=== PATIENT | male | born 1955 | race Caucasian/White ===

== ENCOUNTER 2019-11-09 06:00 | Outpatient (RCR) | payer SELFPAY | END 2019-11-10 00:01 | LOC: WPT 06:00 | PROVIDERS: Family Provider Internal Medicine; Visit Provider Internal Medicine | DX: M17.12 Unilateral primary osteoarthritis, left knee (principal) | CPT/HCPCS: 97161 ==

== ENCOUNTER 2019-11-11 06:00 | Outpatient (RCR) | payer OTHER, SELFPAY | END 2019-12-11 23:59 | disposition home or self-care (01) | LOC: WPT 06:00 | PROVIDERS: Family Provider Internal Medicine; PCP Internal Medicine; Referring Provider Internal Medicine; Visit Provider Internal Medicine | DX: Z47.1 Aftercare following joint replacement surgery (principal); Z96.652 Presence of left artificial knee joint; M19.90 Unspecified osteoarthritis, unspecified site | CPT/HCPCS: 97110; 97112; 97140 ==

== ENCOUNTER → 2019-11-16 13:30 | Outpatient (BNVA) | payer OTHER, SELFPAY | PROVIDERS: Family Provider Internal Medicine; PCP Internal Medicine; Visit Provider Orthopaedic Surgery | DX: Z48.89 Encounter for other specified surgical aftercare (principal) | CPT/HCPCS: 73560; 73565 ==

== ENCOUNTER 2020-02-08 06:00 | Outpatient (RCR) | payer OTHER, SELFPAY | END 2020-02-09 23:59 | disposition home or self-care (01) | LOC: WPT 06:00 | PROVIDERS: Family Provider Internal Medicine; PCP Internal Medicine; Referring Provider Orthopaedic Surgery; Visit Provider Orthopaedic Surgery | DX: M75.01 Adhesive capsulitis of right shoulder (principal) | CPT/HCPCS: 97110; 97112; 97161 ==

== ENCOUNTER 2020-02-10 06:00 | Outpatient (RCR) | payer OTHER, SELFPAY | END 2020-03-10 23:59 | disposition home or self-care (01) | LOC: WPT 06:00 | PROVIDERS: Family Provider Internal Medicine; PCP Internal Medicine; Referring Provider Orthopaedic Surgery; Visit Provider Orthopaedic Surgery | DX: M75.01 Adhesive capsulitis of right shoulder (principal) | CPT/HCPCS: 97110; 97112 ==

== ENCOUNTER 2020-06-22 14:29 | Outpatient (CLI) | payer OTHER, SELFPAY ==
--- NOTE | 2020-06-22 14:35 | XR_ITS ---
WS: [id number] Lateral views of cervical spine in the flexion, extension and neutral positions. 06/22/2020 Clinical Data: CERIVALGIA-PL COMMENT ON PRES OR ABS OF SPINAL INSTABILITY Comparison: None. Findings: There is osteoporosis of the cervical vertebral bodies. There is disc space narrowing at C5-C6 and C6 -C7. No prevertebral soft tissue swelling is seen. Compression fractures are noted. On flexion there is slight subluxation of C4 on C5 of 0.2 cm. No limitation of motion is seen. XR/XR cervical spine fl/ex [id number] Impression: 1. Minimal subluxation on flexion of 0.2 cm C4 on C5. 2. Degenerative disc disease at C5-C6 and C6-C7. 3. Osteoporosis.
--- NOTE | 2020-06-22 14:35 | MR_ITS ---
WS: [id number] MRI CERVICAL SPINE NONCONTRAST TECHNIQUE: Sagittal T1, T2 and STIR imaging. Axial T2, gradient, and fiesta imaging. CLINICAL INFORMATION: CERVICALGIA COMPARISON: None. FINDINGS: Straightening of the normal cervical lordosis. Cord signal is normal. No high-grade central canal gatito rowing. Disc space narrowing worse at C6-7. C2-C3: Osteophytic ridging. Mild to moderate left foraminal narrowing. Spinal canal is patent. Modera te facet arthropathy. C3-C4: Mild disc osteophyte ridging. Moderate left and mild right bony foraminal narrowing. Spinal ca nal is patent. Moderate facet arthropathy. C4-C5: Slight anterolisthesis C4 on C5. Disc osteophyte complex with endplate ridging. Spinal canal i s patent. Moderate bilateral bony foraminal narrowing right greater than left. Advanced right facet a rthropathy. C5-C6: Left eccentric disc osteophyte complex with moderate to severe left bony foraminal narrowing. Moderate right bony foraminal narrowing. Mild central canal stenosis. C6-C7: Disc osteophyte complex with endplate ridging. Moderate left greater than right bony foramina l narrowing. Spinal canal is patent. C7-T1: Disc osteophytic ridging. Mild to moderate bilateral bony foraminal narrowing. Spinal canal is patent. Tiny disc protrusions in the upper thoracic spine at T1-T2 and T2-3 Visualized brain stem structures: Normal. Prevertebral soft tissues: Normal. MR/MR cervical spin wo con* [id number] IMPRESSION: 1. Straightening of the normal cervical lordosis. No high-grade central canal narrowing. Cord signal is normal. 2. Mild central canal stenosis C4-C5 due to disc osteophyte complex with endpl ate ridging. 3. Left eccentric disc osteophyte complex C5-C6 with moderate to severe left b brenda foraminal narrowing. 4. Multilevel moderate bony foraminal narrowing worse at left C3-4, right C4-5 , left C5-C6 and left C6-7. 5. Asymmetric advanced facet arthropathy left C3-C4, right C4-C5,
== END 2020-06-22 14:30 | disposition home or self-care (01) ==
LOC: RADWPI 14:32
PROVIDERS: Family Provider Internal Medicine; PCP Internal Medicine; Visit Provider Nurse Practitioner
DX: M50.323 Other cervical disc degeneration at C6-C7 level (principal); M81.0 Age-related osteoporosis without current pathological fracture; M48.02 Spinal stenosis, cervical region; M25.78 Osteophyte, vertebrae; M47.812 Spondylosis without myelopathy or radiculopathy, cervical region
CPT/HCPCS: 72040; 72141

== ENCOUNTER 2020-10-18 09:16 | Outpatient (CLI) | payer OTHER, SELFPAY ==
--- NOTE | 2020-10-18 09:23 | XR_ITS ---
WS: [id number] SCREENING DEXA SCAN [employer] CLINICAL INFORMATION: OSTEOPOROSIS COMPARISON: None. FINDINGS: The L1-L4 bone mineral density measures 1.311 g/cm2. This corresponds to a T score score of 0.8 and Z score of 0.7. Left femoral neck bone mineral density measures 0.748 g/cm2. This corresponds to a T score of -2.4 an d Z score of -2.2. Right femoral neck bone mineral density measures 0.819 g/cm2. This corresponds to a T score -2.0of an d Z score of -1.7. Mean femoral neck bone mineral density measures 0.784 g/cm2. This corresponds to a T score of -2.2 an d Z score of -2.0. XR/XR DEXA axial skeleton* [id number] IMPRESSION: Osteopenia in the femoral necks at the upper end of the range T score in the lumbar spine spuriously elevated due to endplate sclerosis Patient's FRAX calculated 10 year probability for major osteoporotic fracture i s 14.8 % and osteoporotic hip fracture is 3.9%.
== END 2020-10-18 09:17 | disposition home or self-care (01) ==
LOC: RADWPI 09:21
PROVIDERS: PCP Family Medicine; Visit Provider Family Medicine
DX: M81.0 Age-related osteoporosis without current pathological fracture (principal); M85.89 Other specified disorders of bone density and structure, multiple sites
CPT/HCPCS: 77080; 99204

== ENCOUNTER → 2021-04-18 09:44 | Outpatient (BNVA) | payer OTHER, SELFPAY | PROVIDERS: PCP Family Medicine; Visit Provider Specialist | DX: G25.0 Essential tremor (principal); F10.20 Alcohol dependence, uncomplicated; J44.9 Chronic obstructive pulmonary disease, unspecified; Z98.1 Arthrodesis status | CPT/HCPCS: 99213 ==

== ENCOUNTER 2022-04-10 14:22 | Emergency (ER) | payer OTHER, SELFPAY ==
[2022-04-10 14:37] VITALS: BP 119/73; PULSE 71; RESP 18; TEMP 36.8; O2SAT 94; BMI 29.2
--- NOTE | 2022-04-10 15:08 | XRR_ITS ---
PROCEDURE INFORMATION: Exam: XR Lumbosacral Spine Exam date and time: 04/10/2022 3:25 PM Age: 67 years old Clinical indication: Low back pain; Patient HX: No specified injury; Additional info: Pain/injury TECHNIQUE: Imaging protocol: XR of the lumbosacral spine. Views: 2 or 3 views. COMPARISON: No relevant prior studies available. FINDINGS: Bones/joints: No acute fracture. There is a mild lumbar spine scoliosis convex to the left. There is disc space narrowing at L2/3. Soft tissues: Unremarkable. XR/XR lumbar spine 2-3V* [id number] IMPRESSION: There is no evidence for acute fracture or malalignment. If there is desire for further evaluation, a CT scan could be performed.
--- NOTE | 2022-04-10 15:08 | XRR_ITS ---
PROCEDURE INFORMATION: Exam: XR Thoracic Spine Exam date and time: 04/10/2022 3:25 PM Age: 67 years old Clinical indication: Pain in thoracic spine TECHNIQUE: Imaging protocol: XR of the thoracic spine. Views: 3 views. COMPARISON: CR XR cervical spine fl/ex [id number] 06/22/2020 4:00 PM FINDINGS: Bones/joints: There is osteopenia.There is no evidence for acute fracture or malalignment. Soft tissues: Unremarkable. XR/XR thoracic spine 3V* [id number] IMPRESSION: There is no evidence for acute fracture or malalignment. If there is desire for further evaluation, a MRI could be performed.
--- NOTE | 2022-04-10 15:09 | W.ED.BACK ---
HPI - Back Pain/Injury General: Chief Complaint: Back Pain/Injury Stated Complaint: Lower back pain and spine Time Seen by Provider: 04/10/22 14:50 Source: patient Mode of arrival: ambulatory Limitations: no limitations History of Present Illness: Patient is a nice 67-year-old male who presents to ED today with a complaint of back pain. Patient states he has a longstanding history of back pain stating that several decades ago he crushed multiple vertebrae in his back and neck. 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 Patient states yesterday he had a near fall but states he was able to catch himself. He reports since that time worsening discomfort to his back. MD elicited complaint: back pain Pertinent past history: prior back pain Onset (ago): day(s) (yesterday) Timing: constant Severity: severe Similar Symptoms Previously: Yes Location: lumbar spine and thoracic spine Radiation: none Exacerbating factors: movement, sitting upright, walking and lifting Relieving factors: other (lying flat) Associated symptoms: Reports no associated symptoms; Deny abdominal pain, chills, dysuria, fatigue, fever(s) or hematuria Work related injury: No Review of Systems Const: Denies: fever(s), chills, body aches, fatigue or malaise Card: Denies: chest pain Resp: Denies: dyspnea GI: Denies: abdominal pain : Denies: flank pain, dysuria or hematuria Musc: Reports: back pain; Denies: neck pain, extremity pain or joint pain Skin/Breast: Denies: rash Neuro: Denies: headache(s), numbness in extremities, weakness in extremities, sensory changes, lack of coordination or dizziness PFS ED PFSH: Social History Smoking and tobacco status: never smoked Alcohol intake: never History of recent travel: No Physical Exam Const: COMMON NORMALS: no acute distress, average body habitus, patient oriented x3, no limitations, healthy appearing, alert and well nourished Neck/C-Spine: OTHER: chronic limited ROM to neck; he states pain in neck is chronic and at baseline Back/Pelvis: THORACIC SPINE/UPPER BACK: Yes ROM limited, Yes pain with ROM, Yes thoracic spinal tenderness, Yes paraspinal muscle tenderness and No paraspinal muscle spasm LUMBAR SPINE/LOWER BACK: Yes ROM limited, Yes pain with ROM, Yes lumbar spinal tenderness, Yes paraspinal muscle tenderness and No paraspinal muscle spasm PELVIS: Yes buttocks normal SACROILIAC JOINTS: Yes SI joints normal OTHER: tenderness throughout lower thoracic/lumbar vertebra as well as paraspinal musculature; chronic limited ROM Extremity: COMMON NORMALS: normal to inspection GENERAL: Yes normal exam except as noted Neuro: DALIA COMA SCALE: document GCS findings [place] coma scale eye opening: Spontaneous [place] coma scale verbal response: Orientated [place] coma scale motor response: Obey commands [place] coma scale total score: 15 COMMON NORMALS: patient oriented x3, moves all extremities, no focal motor deficits and no sensory deficits noted SENSORIUM/ORIENTATION: Yes alert MOTOR EXAM: 5/5 motor strength present throughout Skin: COMMON NORMALS: no rashes or lesions noted GENERAL SKIN EXAM: no rashes or lesions noted Course Vital Signs: Vital signs: Vital Signs Temperature 98.2 F 04/10/22 14:37 Pulse Rate 71 04/10/22 14:37 Respiratory Rate 16 04/10/22 16:36 Blood Pressure 119/73 04/10/22 14:37 Pulse Oximetry 94 04/10/22 14:37 MDM - Back Pain/Injury Medical Decision Making XRs negative. He does not have any acute neurologic deficits. Patient already takes hydrocodone 10/325 mg tablets prescribed by pain management. Recommend he contact his sign painter helper to see if they need to adjust medications transiently. We will place him on an anti-inflammatory and steroids. He is currently taking 2mg zanaflex TID. This can be increased to 4 mg TID. Labs Radiology Impressions Lumbar Spine X-Ray 04/10/22 15:08 IMPRESSION: There is no evidence for acute fracture or malalignment. If there is desire for further evaluation, a CT scan could be performed. Thoracic Spine X-Ray 04/10/22 15:08 IMPRESSION: There is no evidence for acute fracture or malalignment. If there is desire for further evaluation, a MRI could be performed. Discharge Plan Discharge Patient Disposition: Home Clinical Impression: Acute exacerbation of chronic low back pain Condition: Stable Prescriptions: New methylprednisolone [Medrol ([place])] 4 mg tablets,dose pack See Rx Instructions .ROUTE .COMPLEX Qty: 21 0RF Rx Instructions: orally per package directions Changed Celebrex 200 mg capsule 200 mg PO BID PRN (Reason: pain) Qty: 20 0RF tizanidine 4 mg capsule 4 mg PO TID PRN (Reason: muscle spasticity) Qty: 20 0RF Discontinued prednisone 10 mg tablet 10 mg PO BID 0RF No Action albuterol sulfate 90 mcg/actuation aerosol powdr breath activated 1 inh INHALATION ONCE 0RF budesonide-formoterol 80-4.5 mcg/actuation HFA aerosol inhaler 2 puff INHALATION BID 0RF hydrocodone-acetaminophen [[place]] 10-325 mg tablet 1 tab PO Q6H PRN0RF lactulose 10 gram/15 mL solution 10 gm PO ONCE 0RF amlodipine 10 mg tablet 10 mg PO ONCE 0RF folic acid 1 mg tablet 1 mg PO ONCE 0RF primidone 50 mg tablet 50 mg PO BID 30 Days Qty: 60 5RF Rx Instructions: 1 tablet with supper for 7 days then 1 in the morning and 1 with supper For tremor. 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
[2022-04-10 15:24] VITALS: RESP 16
[2022-04-10] MEDS: orphenadrine 30 mg/mL Inj 2 mL 60 MG IM (15:24)
[2022-04-10] MEDS: ketorolac 60 mg/2 mL INJ 30 MG IM (15:24)
[2022-04-10] MEDS: morphine 4 mg/mL SDV 1 mL IVP (15:24)
[2022-04-10 16:36] VITALS: RESP 16
[2022-04-10] MEDS: HYDROmorphone 1 mg/mL INJ 1 mL 0.5 MG IVP (16:36)
== END 2022-04-10 17:06 | disposition home or self-care (01) ==
PROVIDERS: Emergency Provider Physician Assistant; PCP Family Medicine
DX: M54.50 Low back pain, unspecified (principal); G89.29 Other chronic pain
CPT/HCPCS: 72072; 72100; 96372; 96374; 96375; 99284; J1170; J1885; J2270; J2360

== ENCOUNTER → 2022-05-01 09:42 | Outpatient (BNVA) | payer OTHER, SELFPAY | PROVIDERS: PCP Family Medicine; Visit Provider Specialist | DX: G25.0 Essential tremor (principal) | CPT/HCPCS: 99214 ==

== ENCOUNTER 2022-09-03 16:11 | Emergency (ER) | payer OTHER, SELFPAY ==
[2022-09-03 16:43] VITALS: BMI 28.7
[2022-09-03 16:46] VITALS: BP 139/88; PULSE 62; RESP 18; TEMP 36.8; O2SAT 93
--- NOTE | 2022-09-03 16:47 | ECG_ITS ---
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 Measurements Intervals [place] Rate: 58 P: 34 NH: 183 QRS: 15 QRSD: 118 T: 62 QT: 406 QTc: 401 Interpretive Statements SINUS BRADYCARDIA MODERATE INTRAVENTRICULAR CONDUCTION DELAY Compared to ECG 09/30/2019 10:34:38 Sinus rhythm no longer present Electronically Signed On 09-03-2022 22:48:36 CDT by Dorota Bell M.D. [id number]
--- NOTE | 2022-09-03 17:00 | XRR_ITS ---
PROCEDURE INFORMATION: Exam: XR Chest Exam date and time: 09/03/2022 5:10 PM Age: 67 years old Clinical indication: Angina pectoris and chest pressure and chest wall pain; Additional info: Chest pain TECHNIQUE: Imaging protocol: Radiologic exam of the chest. Views: 1 view. COMPARISON: CR XR chest 2V* [id number] 09/30/2019 10:58 AM FINDINGS: Lungs: Curvilinear bibasilar scarring. No consolidation. Pleural spaces: Unremarkable. No pleural effusion. No pneumothorax. Heart/Mediastinum: Unremarkable. No cardiomegaly. Bones/joints: Unremarkable. XR/XR chest 1V portable [id number] IMPRESSION: No acute findings.
[2022-09-03 17:20] LABS: Basophils % 0.8 %; Eosinophils # 0.1 10^3/uL (0.0-0.8); Eosinophils % 1.2 %; Hematocrit 42.5 % (42.0-52.0); Hemoglobin 14.3 g/dL (11.7-16.6); Lymphocytes # 1.4 10^3/uL (0.8-4.8); Lymphocytes % 28.8 %; Mean Corpuscular HGB Conc 33.6 g/dL (30.0-36.0); Mean Corpuscular Hemoglobin 32.1 pg (28.0-34.0); Mean Corpuscular Volume 95.5 fl (80-94); Mean Platelet Volume 11.5 fL (7.4-10.4); Monocytes # 0.7 10^3/uL (0.2-0.9); Neutrophils # 2.74 10^3/uL (1.8-7.7); Neutrophils % 54.8 %; Nucleated Red Blood Cells % 0 %; Platelet Count 145 10^3/cmm (130-400); Red Blood Count 4.45 10^6/uL (4.1-5.3); Red Cell Distribution Width 13.6 % (12.1-15.1)
[2022-09-03 17:36] LABS: Troponin(5th) Baseline 12 ng/L (0-15)
[2022-09-03 17:37] LABS: Alanine Aminotransferase 16 U/L (0-41); Albumin Level 3.5 g/dL (3.5-5.2); Alkaline Phosphatase 98 U/L (40-130); Anion Gap 10.7 (5-19); Aspartate Amino Transferase 17 U/L (0-40); Blood Urea Nitrogen 10 mg/dL (8-23); Calcium 9.2 mg/dL (8.5-10.5); Carbon Dioxide 24 mmol/L (22-29); Chloride 101 mmol/L (98-107); Globulin 3.1 g/dL (1.3-4.6); Glucose 114 mg/dL (65-115); Lipase 34 U/L (13-60); Osmolality Calculated 274 mOsm/kg (285-295); Potassium 3.7 mmol/L (3.5-5.1); Sodium 132 mmol/L (136-145); Total Bilirubin 1.2 mg/dL (0.15-1.2); Total Protein 6.6 g/dL (6.6-8.7)
[2022-09-03 17:38] VITALS: BP 139/88; PULSE 58; RESP 18; TEMP 36.8; O2SAT 93
--- NOTE | 2022-09-03 17:39 | PC.NURSE ---
Patient is on continuous CM and SP02 monitor
[2022-09-03 17:42] VITALS: BP 126/85
[2022-09-03] MEDS: ketorolac 30 mg/mL INJ 15 MG IVP (18:10)
[2022-09-03] MEDS: sodium chloride 0.9% 1,000 ML 999 ML IV (18:10)
[2022-09-03] MEDS: meclizine 25 mg tablet PO (18:56)
--- NOTE | 2022-09-03 19:00 | ECG_ITS ---
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 Measurements Intervals [place] Rate: 57 P: 27 TN: 196 QRS: 21 QRSD: 118 T: 59 QT: 420 QTc: 412 Interpretive Statements SINUS BRADYCARDIA SEPTAL MYOCARDIAL INFARCTION , OF INDETERMINATE AGE [40+ ms Q WAVE IN V1/V2] Compared to ECG 09/03/2022 16:45:43 Myocardial infarct finding now present Intraventricular conduction delay no longer present Electronically Signed On 09-03-2022 23:06:56 CDT by Dorota Bell M.D. [id number]
[2022-09-03 19:15] LABS: Add Urine Microscopic? NO; Charge for UA Resulting for Rev
[2022-09-03 19:22] LABS: Bilirubin Urine Neg (Negative); Blood Urine Neg (Negative); Glucose Urine UA Norm (Normal); Ketones Urine 1+ (Negative); Leukocyte Esterase Urine Negative (Negative); Nitrate Urine Negative (Negative); Protein Urine Neg (Negative); Specific Gravity, Urine 1.015 (1.005-1.030); Urine Appearance Clear (CLEAR); Urine Color Yellow (Yellow); Urobilinogen Urine 8 mg/dL (Negative); pH Urine 7 (5-7)
[2022-09-03 19:43] VITALS: BP 160/95; PULSE 58; RESP 18; O2SAT 97
[2022-09-03 19:48] LABS: Troponin 5 2HR 12.66 ng/L (0-15)
[2022-09-03 19:51] LABS: Troponin 5 2HR Delta 0.66 ABS# (0-10)
[2022-09-03] MEDS: fentaNYL 50 mcg/mL INJ 2mL 25 MCG IVP (20:35)
--- NOTE | 2022-09-03 20:48 | W.ED.CHESTPA ---
HPI - Chest Pain General: Chief Complaint: Chest Pain Stated Complaint: Low BP and 02 Time Seen by Provider: 09/03/22 16:52 History of Present Illness: 67-year-old male presents with concerns for dizziness, feels like his blood pressure is low. Patient also reports some chest pain that comes and goes that is worse with inspiration worse with palpation. Patient reports that he gets dizzy when he stands up. Is been going on for about a day and a half. He also noticed that his blood pressure was lower than normal. He normally takes blood pressure medication and did not take it today because it was low. Patient denies any fever, cough. Is concerned about maybe some low oxygen but that was not present upon arrival. No abdominal pain. Associated symptoms: Deny abdominal pain, dyspnea, fever(s), nausea, palpitations or vomiting Review of Systems Const: Denies: fever(s) or chills Eyes: Denies: change in vision or blurry vision ENMT: Denies: throat pain or nasal congestion Card: Reports: chest pain; Denies: palpitations, irregular heart rhythm or lightheadedness Resp: Denies: dyspnea, non-productive cough or wheezing GI: Denies: abdominal pain, nausea, vomiting or diarrhea : Denies: flank pain or difficulty urinating Musc: Denies: neck pain or back pain Skin/Breast: Denies: rash or erythema Neuro: Reports: dizziness; Denies: headache(s) or numbness in extremities Psych: Reports: irritability; Denies: anxiety or depression PFSH ED PFSH: Social History Smoking and tobacco status: never smoked Alcohol intake: never History of recent travel: No Physical Exam Const: COMMON NORMALS: no acute distress, patient oriented x3, no limitations and alert HENMT: COMMON NORMALS: hearing grossly normal bilaterally and moist oral mucous membranes Eye: COMMON NORMALS: Equal, round and reactive pupils present and EOMs intact bilaterally PUPIL: Yes Equal, round and reactive pupils present Resp: COMMON NORMALS: normal respiratory effort, No retractions, No use of accessory muscles and clear to auscultation bilaterally AUSCULTATION: clear to auscultation bilaterally Cardio: COMMON NORMALS: regular rate and regular rhythm RATE: regular rate RHYTHM: regular rhythm GI: COMMON NORMALS: Soft to palpation and non-tender PALPATION: Yes Soft to palpation Extremity: COMMON NORMALS: normal to inspection and full ROM Neuro: COMMON NORMALS: patient oriented x3, CN's II-XII intact bilaterally, moves all extremities, no focal motor deficits and no sensory deficits noted SENSORIUM/ORIENTATION: Yes alert Psych: COMMON NORMALS: mental status grossly normal, cooperative and normal affect Course Vital Signs: Vital signs: Vital Signs Temperature 98.3 F 09/03/22 17:38 Pulse Rate 65 09/03/22 21:16 Respiratory Rate 18 09/03/22 21:16 Blood Pressure 162/92 09/03/22 21:16 Pulse Oximetry 96 09/03/22 21:16 Oxygen Delivery Me thod 09/03/22 17:38 MDM - Chest Pain Medical Decision Making Patient's symptoms completely resolved following IV fluids and meclizine. Patient is feeling significantly better. He was have a little pleuritic chest pain that improved with some Toradol and a mild amount of fentanyl. Patient's labs showed no significant findings. Patient with 2 negative EKGs 2 negative troponins. Patient stable and discharged home. Lab Data : 09/03/22 17:09 09/03/22 17:09 Radiology Impressions Chest X-Ray 09/03/22 17:00 IMPRESSION: No acute findings. Laboratory Results WBC 5.0 10^3/uL (4.0-10.0) 09/03/22 17:09 RBC 4.45 10^6/uL (4.1-5.3) 09/03/22 17:09 Hgb 14.3 g/dL (11.7-16.6) 09/03/22 17:09 Hct 42.5 % (42.0-52.0) 09/03/22 17:09 MCV 95.5 fl (80-94) H 09/03/22 17:09 MCH 32.1 pg (28.0-34.0) 09/03/22 17:09 MCHC 33.6 g/dL (30.0-36.0) 09/03/22 17:09 RDW 13.6 % (12.1-15.1) 09/03/22 17:09 Plt Count 145 10^3/cmm (130-400) 09/03/22 17:09 MPV 11.5 fL (7.4-10.4) H 09/03/22 17:09 Neut % (Auto) 54.8 % 09/03/22 17:09 Lymph % (Auto) 28.8 % 09/03/22 17:09 [place] % (Auto) 14.0 % 09/03/22 17:09 Eos % (Auto) 1.2 % 09/03/22 17:09 Baso % (Auto) 0.8 % 09/03/22 17:09 Neut # (Auto) 2.74 10^3/uL (1.8-7.7) 09/03/22 17:09 Lymph # (Auto) 1.4 10^3/uL (0.8-4.8) 09/03/22 17:09 [place] # (Auto) 0.7 10^3/uL (0.2-0.9) 09/03/22 17:09 Eos # (Auto) 0.1 10^3/uL (0.0-0.8) 09/03/22 17:09 Baso # (Auto) 0.0 10^3/uL (0.0-0.1) 09/03/22 17:09 Nucleated RBC % (auto) 0 % 09/03/22 17:09 Nucleated RBCs # 0.0 /100WBC 09/03/22 17:09 Sodium 132 mmol/L (136-145) L 09/03/22 17:09 Potassium 3.7 mmol/L (3.5-5.1) 09/03/22 17:09 Chloride 101 mmol/L (98-107) 09/03/22 17:09 Carbon Dioxide 24 mmol/L (22-29) 09/03/22 17:09 Anion Gap 10.7 (5-19) 09/03/22 17:09 BUN 10 mg/dL (8-23) 09/03/22 17:09 Creatinine 0.6 mg/dL (0.7-1.2) L 09/03/22 17:09 GFR Calculation 134.0 mL/min (90-130) H 09/03/22 17:09 Glucose 114 mg/dL (65-115) 09/03/22 17:09 Calculated Osmolality 274 mOsm/kg (285-295) L 09/03/22 17:09 Calcium 9.2 mg/dL (8.5-10.5) 09/03/22 17:09 Total Bilirubin 1.2 mg/dL (0.15-1.2) 09/03/22 17:09 AST 17 U/L (0-40) 09/03/22 17:09 ALT 16 U/L (0-41) 09/03/22 17:09 Alkaline Phosphatase 98 U/L (40-130) 09/03/22 17:09 Troponin T Baseline 12 ng/L (0-15) 09/03/22 17:09 Troponin T 120 Minute 12.66 ng/L (0-15) 09/03/22 19:19 Delta Troponin T 0.66 ABS# (0-10) 09/03/22 19:19 Total Protein 6.6 g/dL (6.6-8.7) 09/03/22 17:09 Albumin 3.5 g/dL (3.5-5.2) 09/03/22 17:09 Globulin 3.1 g/dL (1.3-4.6) 09/03/22 17:09 Lipase 34 U/L (13-60) 09/03/22 17:09 Urine Color Yellow (Yellow) 09/03/22 19:08 Urine Appearance Clear (CLEAR) 09/03/22 19:08 Urine pH 7 (5-7) 09/03/22 19:08 Ur Specific [place] 1.015 (1.005-1.030) 09/03/22 19:08 Urine Protein Neg (Negative) 09/03/22 19:08 Urine Glucose (UA) Norm (Normal) 09/03/22 19:08 Urine Ketones 1+ (Negative) H 09/03/22 19:08 Urine Blood Neg (Negative) 09/03/22 19:08 Urine Nitrate Negative (Negative) 09/03/22 19:08 Urine Bilirubin Neg (Negative) 09/03/22 19:08 Urine Urobilinogen 8 mg/dL (Negative) H 09/03/22 19:08 Ur Leukocyte Esterase Negative (Negative) 09/03/22 19:08 EKG Data EKG 2: I personally reviewed and interpreted this EKG as follows: EKG interpretation date: 09/03/22 EKG interpretation time: 19:13 Interpretation: Ventricular rate 57, ND 196 QRS 118, unchanged from previous, no acute ST elevation or changes Discharge Plan Discharge Patient Disposition: Home Clinical Impression: Dizziness on standing, Anterior chest wall pain Condition: Stable Prescriptions: No Action primidone 50 mg tablet 100 mg PO BID 30 Days Qty: 360 5RF Rx Instructions: Take 2 tablets in the morning and 2 tablets in the afternoon. albuterol sulfate 90 mcg/actuation aerosol powdr breath activated 1 inh INHALATION Q6H PRN (Reason: Shortness Of Breath) lactulose 10 gram/15 mL solution 10 gm PO BID folic acid 1 mg tablet 1 mg PO DAILY Advair Diskus 250-50 mcg/dose Blister With Device 1 inh INHALATION BID amlodipine 2.5 mg Tablet 2.5 mg PO DAILY PRN (Reason: Blood Pressure) hydrocodone-acetaminophen 10-325 mg Tablet 1 tab PO BID PRN (Reason: Pain) aspirin 81 mg Tablet,Chewable 81 mg PO DAILY Vitamin D3 25 mcg (1,000 unit) Capsule 25 mcg PO DAILY Flomax 0.4 mg Capsule 0.4 mg PO DAILY tizanidine 4 mg capsule 4 mg PO TID PRN (Reason: muscle spasticity) Qty: 20 0RF Discharge Orders: Discharge ED (Routine); Ordered 09/03/22 Ordered By: Winston Lee Referrals: Courtney Duran MD [Primary Care Provider] - Discharge Diet: Advance as tolerated Discharge Activity: Resume usual activity Patient Instructions: Chest Pain - Chest Wall, Dizziness (ED), Opioid Safety, Pain Management Activity Restrictions/Additional Instructions: Follow-up with your primary care provider towards the end of the week for recheck of your symptoms Coding Level of Care Code 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
[2022-09-03 21:16] VITALS: BP 162/92; PULSE 65; RESP 18; O2SAT 96
== END 2022-09-03 21:16 | disposition home or self-care (01) ==
PROVIDERS: Emergency Provider Student in an Organized Health Care Education/Training Program; PCP Family Medicine
DX: R07.89 Other chest pain (principal); R42 Dizziness and giddiness; Z79.82 Long term (current) use of aspirin
CPT/HCPCS: 71045; 80053; 81003; 83690; 84484; 85025; 93005; 96361; 96374; 96375; 99285; J1885; J3010; J7030; J8597

== ENCOUNTER 2022-11-15 08:19 | Outpatient (CLI) | payer OTHER, SELFPAY ==
--- NOTE | 2022-11-15 08:28 | MR_ITS ---
WS: [id number] MRI HEAD WITH CONTRAST TECHNIQUE: Sagittal T1, T2 axial, T2 axial FLAIR, axial susceptibility weighted imaging, axial diffus ion weighted images, and coronal T2 images were obtained. Pre and post-T1 axial and post T1 coronal i mages. ADC and FSPGR images. CLINICAL INFORMATION: ESSENTIAL TREMORS SEVERE BILATERAL COMPARISON: None. FINDINGS: No evidence of restricted diffusion to suggest acute ischemia. Ventricular system and basal cisterns are patent. Moderate to advanced small vessel changes with moderate parenchymal volume loss. Normal p osterior fossa. Chronic lacunar infarct RIGHT cerebellum. Normal vascular flow voids at the skull bas e. No extra-axial fluid collections. No evidence of mass or mass effect. Normal posterior nasopharynx . Normal parapharyngeal fat. Mild mucosal thickening in the ethmoid air cells. Mastoid air cells are well aerated. No hemosiderin on susceptibly weighted images. Normal optic chiasm and pituitary infundibulum. Normal cavernous sinuses and Meckel's cave. Moderate symmetric atrophy temporal lobes and hippocampal forma tions. No abnormal gadolinium enhancement. Normal dural venous sinuses. MR/MR head wo/w con [id number] IMPRESSION: 1. No evidence of restricted diffusion to suggest acute ischemia. 2. Moderate to advanced small vessel changes with moderate parenchymal volume loss. Small vessel changes in the soren. 3. Small chronic lacunar infarct RIGHT cerebellum. 4. Mild mucosal thickening in the ethmoid air cells. 5. Moderate symmetric atrophy temporal lobes and hippocampal formations. 6. No abnormal gadolinium enhancement. 7. No hemosiderin on the susceptibly weighted images.
[2022-11-15] MEDS: gadobenate dimeglumine 20 mL vial IV (08:52)
== END 2022-11-15 08:20 | disposition home or self-care (01) ==
LOC: RAD 08:21
PROVIDERS: PCP Family Medicine; Visit Provider Family Medicine
DX: G25.0 Essential tremor (principal); I63.81 Other cerebral infarction due to occlusion or stenosis of small artery; G31.9 Degenerative disease of nervous system, unspecified
CPT/HCPCS: 70553; A9577

== ENCOUNTER → 2023-03-19 12:37 | Outpatient (BNVA) | payer OTHER, SELFPAY | PROVIDERS: PCP Family Medicine; Visit Provider Specialist | DX: Z45.42 Encounter for adjustment and management of neurostimulator (principal); Z96.82 Presence of neurostimulator | CPT/HCPCS: 95983; 95984; 99215 ==

== ENCOUNTER → 2023-04-18 14:37 | Outpatient (BNVA) | payer OTHER, SELFPAY | PROVIDERS: PCP Family Medicine; Referring Provider Family Medicine; Visit Provider Student in an Organized Health Care Education/Training Program | DX: S62.341A Nondisplaced fracture of base of second metacarpal bone, left hand, initial encounter for closed fracture (principal); S62.347A Nondisplaced fracture of base of fifth metacarpal bone, left hand, initial encounter for closed fracture; W19.XXXA Unspecified fall, initial encounter | CPT/HCPCS: 73130 ==

== ENCOUNTER 2023-04-18 16:16 | Outpatient (CLI) | payer OTHER, SELFPAY | END 2023-04-18 16:17 | disposition home or self-care (01) | LOC: SPT 16:16 | PROVIDERS: PCP Family Medicine; Visit Provider Student in an Organized Health Care Education/Training Program | DX: Z46.89 Encounter for fitting and adjustment of other specified devices (principal); S62.397D Other fracture of fifth metacarpal bone, left hand, subsequent encounter for fracture with routine healing; X58.XXXD Exposure to other specified factors, subsequent encounter; S62.341A Nondisplaced fracture of base of second metacarpal bone, left hand, initial encounter for closed fracture; S62.347A Nondisplaced fracture of base of fifth metacarpal bone, left hand, initial encounter for closed fracture; W19.XXXA Unspecified fall, initial encounter | CPT/HCPCS: 26600; 97760; 99204; L3984 ==

== ENCOUNTER → 2023-05-20 12:55 | Outpatient (BNVA) | payer OTHER, SELFPAY | PROVIDERS: PCP Family Medicine; Visit Provider Student in an Organized Health Care Education/Training Program | DX: S62.347A Nondisplaced fracture of base of fifth metacarpal bone, left hand, initial encounter for closed fracture (principal); S62.341A Nondisplaced fracture of base of second metacarpal bone, left hand, initial encounter for closed fracture; X58.XXXA Exposure to other specified factors, initial encounter | CPT/HCPCS: 73130; 99213 ==

== ENCOUNTER 2023-05-20 14:09 | Outpatient (CLI) | payer OTHER, SELFPAY | END 2023-05-20 14:10 | disposition home or self-care (01) | LOC: SPT 14:10 | PROVIDERS: PCP Family Medicine; Visit Provider Student in an Organized Health Care Education/Training Program | DX: Z46.89 Encounter for fitting and adjustment of other specified devices (principal); S62.397D Other fracture of fifth metacarpal bone, left hand, subsequent encounter for fracture with routine healing; X58.XXXD Exposure to other specified factors, subsequent encounter | CPT/HCPCS: 97760; L3908 ==

== ENCOUNTER → 2023-06-19 13:43 | Outpatient (BNVA) | payer OTHER, SELFPAY | PROVIDERS: PCP Family Medicine; Visit Provider Specialist | DX: Z45.42 Encounter for adjustment and management of neurostimulator; G25.0 Essential tremor; Z96.82 Presence of neurostimulator | CPT/HCPCS: 95983; 99214 ==

== ENCOUNTER → 2023-07-09 08:01 | Outpatient (BNVA) | payer OTHER, SELFPAY | PROVIDERS: PCP Family Medicine; Visit Provider Student in an Organized Health Care Education/Training Program | DX: S62.347A Nondisplaced fracture of base of fifth metacarpal bone, left hand, initial encounter for closed fracture; S62.341A Nondisplaced fracture of base of second metacarpal bone, left hand, initial encounter for closed fracture; X58.XXXA Exposure to other specified factors, initial encounter | CPT/HCPCS: 73130; 99213 ==

== ENCOUNTER 2023-07-23 15:08 | Outpatient (CLI) | payer OTHER, SELFPAY ==
--- NOTE | 2023-07-23 15:00 | CT_ITS ---
WS: [id number] CT HEAD TECHNIQUE: Noncontrast CT of the head obtained from the skullbase to the vertex. CLINICAL INFORMATION: Z96.89 - Presence of other specified functional implants COMPARISON: None. DLP: 1132.[address] scans at [facility] use at least one of these dose optimization techniques: automated e xposure control; mA and/or kV adjustment per patient size (includes targeted exams where dose is matc hed to clinical indication); or iterative reconstruction. FINDINGS: Postoperative changes bilateral deep brain stimulator electrodes with bilateral frontal tiffany holes. T ips in the thalamus. Mixed attenuation extra-axial fluid collections overlying the frontal lobes LEFT greater than RIGHT with some increased attenuation blood products. This is likely due to recent DBS implantation. Recommend correlation with recent surgery. Minimal associated mass effect on the fronta l lobes. LEFT frontal subdural measures 11 mm in maximum short axis dimension. Smaller RIGHT frontal subdural hematoma. Moderate small vessel changes with moderate parenchymal volume loss. Tiny chronic lacunar infarct RI GHT cerebellum. Mild mucosal thickening in the paranasal sinuses. IMPRESSION: 1. Postoperative changes bilateral DBS stimulator placement. 2. Mixed attenuation bilateral frontal subdural collections with mixed attenuation blood products me asuring 11 mm overlying the LEFT frontal lobe. Minimal associated mass effect. No hydrocephalus. Find ings most likely due to postoperative changes from recent DBS placement. Recommend correlation with r ecent surgery and follow-up CT. 3. Moderate small vessel changes with moderate parenchymal volume loss. 4. Tiny chronic lacunar infarct RIGHT cerebellum. Notified Bella Victor MD at 07/23/2023 4:06 PM.
== END 2023-07-23 15:09 | disposition home or self-care (01) ==
PROVIDERS: PCP Family Medicine; Visit Provider Specialist
DX: R51.9 Headache, unspecified (principal); Z96.89 Presence of other specified functional implants; M17.11 Unilateral primary osteoarthritis, right knee; I63.81 Other cerebral infarction due to occlusion or stenosis of small artery; M54.81 Occipital neuralgia; Z98.1 Arthrodesis status
CPT/HCPCS: 20610; 64405; 70450; 73560; 73565; 99213; 99214; J3301; J3490

== ENCOUNTER 2023-07-25 08:50 | Outpatient (CLI) | payer OTHER, SELFPAY ==
--- NOTE | 2023-07-25 09:15 | CT_ITS ---
WS: [id number] CT HEAD NONCONTRAST HISTORY: S06.5XAA - Traumatic subdural hemorrhage with loss of con... TECHNIQUE: Contiguous axial imaging performed through the brain in 3.0 mm imaging. Bone and soft tiss ue windows. Sagittal and coronal reformats reviewed. All CT scans at [facility] use at least one of these dose optimization techniques: automated exposure control; mA and/or kV adjustment per pa tient size (includes targeted exams where dose is matched to clinical indication); or iterative recon struction. DLP: 1069.58 mGy.cm COMPARISON: 07/23/2023 Reidentified are postoperative changes of bilateral deep brain stimulator electrodes and associated b ilateral frontal tiffany holes. Tip of the electrodes terminate in the region of the thalami similar to the prior examination. Reidentified are bilateral mixed attenuation extra-axial fluid collections overlying the frontal lobe s. LEFT is slightly greater than the RIGHT. There is mixed attenuation. There is still increased atte nuation from acute blood products. The LEFT frontal subdural is minimally decreased by approximately 2 to 3 mm in diameter. There has been no progression. No blood along the course of the electrodes. Th ere is very minimal mass effect upon the LEFT frontal cortex. Confluent low-attenuation in the white matter and surrounding the ventricles from small vessel ischemic disease. Tiny remote RIGHT cerebellar lacunar infarct. Ventricles: Ventricles are mildly prominent with mildly prominent extra-axial spaces. Paranasal sinuses: As visualized are clear. Mastoid air cells: Well pneumatized. Calvarium and scalp: Bifrontal tiffany holes. Edema or swelling. IMPRESSION: 1. Reidentified are the bilateral mixed frontal subdural collections. Very slight decrease in size by approximately 2 to 3 mm of the LEFT subdural collection. Mixed blood products remain present within the subdural collections. No progression of acute blood products or mass effect. 2. Status post bilateral DBS stimulator placement.
== END 2023-07-25 08:51 | disposition home or self-care (01) ==
PROVIDERS: PCP Family Medicine; Visit Provider Specialist
DX: S06.5XAA Traumatic subdural hemorrhage with loss of consciousness status unknown, initial encounter (principal); Z96.89 Presence of other specified functional implants; X58.XXXA Exposure to other specified factors, initial encounter; Y93.9 Activity, unspecified; Y92.9 Unspecified place or not applicable; Y99.9 Unspecified external cause status
CPT/HCPCS: 70450

== ENCOUNTER 2023-08-20 07:00 | Outpatient (CLI) | payer OTHER, SELFPAY ==
--- NOTE | 2023-08-20 07:30 | CT_ITS ---
WS: [id number] CT HEAD TECHNIQUE: Noncontrast CT of the head obtained from the skullbase to the vertex. CLINICAL INFORMATION: S06.5XAA - Traumatic subdural hemorrhage with loss of con... COMPARISON: 07/25/2023 and 07/23/2023 DLP: 1107.[address] scans at [facility] use at least one of these dose optimization techniques: automated e xposure control; mA and/or kV adjustment per patient size (includes targeted exams where dose is matc hed to clinical indication); or iterative reconstruction. FINDINGS: Previously described frontal bilateral subdural collections with mixed attenuation blood pr oducts have improved compared to 07/25/2023. RIGHT frontal collection measures approximately 3.5 mm an d LEFT frontal collection measures approximately 5 mm. No evidence of new or progressive hemorrhage. Ventricular system and basal cisterns are patent. Moderate to advanced small vessel changes with mode rate parenchymal volume loss. Intracranial vascular calcification. Tiny chronic lacunar infarct RIGHT cerebellum. Tiny chronic lacunar infarct LEFT caudate. Bilateral deep brain stimulator lead tips in the thalamus. No hydrocephalus. Mastoid air cells well aerated. Mild polypoid mucosal thickening in the paranasal sinuses. IMPRESSION: 1. Previously described frontal bilateral subdural collections with mixed attenuation blood products have improved compared to 07/25/2023. 2. RIGHT frontal collection measures approximately 3.5 mm and LEFT frontal collection measures appro ximately 5 mm. No evidence of new or progressive hemorrhage. 3. Bilateral frontal tiffany holes with DBS electrodes with tips in the thalamus bilaterally. 4. Moderate to advanced small vessel changes with moderate parenchymal volume loss. 5. Tiny chronic lacunar infarct RIGHT cerebellum. 6. Intracranial vascular calcification. 7. No acute intracranial findings.
== END 2023-08-20 07:01 | disposition home or self-care (01) ==
PROVIDERS: PCP Family Medicine; Visit Provider Specialist
DX: S06.5XAA Traumatic subdural hemorrhage with loss of consciousness status unknown, initial encounter (principal); X58.XXXA Exposure to other specified factors, initial encounter; Z86.73 Personal history of transient ischemic attack (TIA), and cerebral infarction without residual deficits; G93.89 Other specified disorders of brain
CPT/HCPCS: 70450

== ENCOUNTER → 2023-09-30 08:19 | Outpatient (BNVA) | payer OTHER, SELFPAY | PROVIDERS: PCP Family Medicine; Visit Provider Specialist | DX: Z96.89 Presence of other specified functional implants (principal); Z45.42 Encounter for adjustment and management of neurostimulator; G25.0 Essential tremor | CPT/HCPCS: 95983; 99213 ==

== ENCOUNTER → 2023-10-24 10:22 | Outpatient (BNVA) | payer OTHER, SELFPAY | PROVIDERS: PCP Family Medicine; Visit Provider Student in an Organized Health Care Education/Training Program | DX: M25.561 Pain in right knee (principal) | CPT/HCPCS: 20610; 99213; J3301 ==

== ENCOUNTER → 2023-12-19 14:14 | Outpatient (BNVA) | payer OTHER, SELFPAY | PROVIDERS: PCP Family Medicine; Visit Provider Specialist | DX: S06.5XAA Traumatic subdural hemorrhage with loss of consciousness status unknown, initial encounter (principal); R29.90 Unspecified symptoms and signs involving the nervous system; G25.0 Essential tremor; Z96.89 Presence of other specified functional implants; Z45.42 Encounter for adjustment and management of neurostimulator; M54.81 Occipital neuralgia; X58.XXXA Exposure to other specified factors, initial encounter | CPT/HCPCS: 95983; 95984; 99215 ==

== ENCOUNTER → 2023-12-31 12:45 | Outpatient (BNVA) | payer OTHER, SELFPAY | PROVIDERS: PCP Family Medicine; Visit Provider Student in an Organized Health Care Education/Training Program | DX: M17.11 Unilateral primary osteoarthritis, right knee (principal) | CPT/HCPCS: 99214 ==

== ENCOUNTER 2024-01-09 15:07 | Outpatient (CLI) | payer OTHER, SELFPAY ==
--- NOTE | 2024-01-09 15:30 | CT_ITS ---
WS: [id number] CT HEAD TECHNIQUE: Noncontrast and contrast-enhanced CT of the head. CLINICAL INFORMATION: Z96.89 - Presence of other specified functional implants COMPARISON: CT 08/20/2023 DLP: 2230.[address] scans at [facility] use at least one of these dose optimization techniques: automated e xposure control; mA and/or kV adjustment per patient size (includes targeted exams where dose is matc hed to clinical indication); or iterative reconstruction. FINDINGS: No evidence intracranial hemorrhage or mass effect. Ventricular system and basal cisterns are patent. Moderate to advanced small vessel changes with moderate parenchymal volume loss unchanged. Intracran ial vascular calcification. Resolution of the previously described subdural hematomas Tiny chronic lacunar infarct RIGHT cerebellum. Tiny chronic lacunar infarct LEFT caudate. Bilateral d eep brain stimulator lead tips in the thalami. No hydrocephalus. Mastoid air cells well aerated. Mild polypoid mucosal thickening in the paranasal sinuses. IMPRESSION: 1. No evidence of intracranial hemorrhage or mass effect. Resolution of the previously described sub dural hematomas. 2. No abnormal intracranial enhancement. 3. Stable deep brain stimulator leads. 4. Moderate to advanced small vessel changes with moderate volume loss appears stable. 5. Intracranial vascular calcification. 6. No other acute findings.
[2024-01-09] MEDS: iohexol 350 mg/mL 500 mL Btl (per mL) IV (15:35)
== END 2024-01-09 15:08 | disposition home or self-care (01) ==
LOC: RAD 15:07
PROVIDERS: PCP Family Medicine; Visit Provider Specialist
DX: S06.5XAA Traumatic subdural hemorrhage with loss of consciousness status unknown, initial encounter (principal); Z96.89 Presence of other specified functional implants; X58.XXXA Exposure to other specified factors, initial encounter
CPT/HCPCS: 70470; Q9967

== ENCOUNTER 2024-02-07 10:46 | Outpatient (CLI) | payer OTHER, SELFPAY ==
--- NOTE | 2024-02-07 11:00 | CT_ITS ---
WS: [id number] CT RIGHT knee, noncontrast HISTORY: M17.11 - Unilateral primary osteoarthritis, right knee TECHNIQUE: Protocol for JAGDISH total knee replacement has been obtained. This includes axial imaging th rough the RIGHT hip, RIGHT knee and RIGHT ankle. DLP: 1101.06 mGy.cm COMPARISON: None available. Pelvis: Mild SI joint narrowing. No destructive bone process. Moderate calcification in the iliac and femoral arteries. Mild diverticular disease without acute diverticulitis. Symmetric appearance of th e soft tissues and muscles. RIGHT knee: Slight lateral subluxation of the patella. Mild to moderate tricompartment osteoarthritis . Small suprapatellar joint effusion. Small Sanchez's cyst. RIGHT ankle: Negative. IMPRESSION: CT imaging provided for JAGDISH robotic total knee replacement.
== END 2024-02-07 10:47 | disposition home or self-care (01) ==
LOC: RAD 10:46
PROVIDERS: PCP Family Medicine; Visit Provider Student in an Organized Health Care Education/Training Program
DX: M17.11 Unilateral primary osteoarthritis, right knee (principal)
CPT/HCPCS: 73700

== ENCOUNTER → 2024-02-11 12:35 | Outpatient (BNVA) | payer SELFPAY | PROVIDERS: PCP Family Medicine; Visit Provider Family Medicine | DX: Z01.818 Encounter for other preprocedural examination (principal) | CPT/HCPCS: 80053; 81003; 85025; 93005 ==

== ENCOUNTER 2024-02-17 11:40 | Observation (INO) | payer OTHER, SELFPAY ==
[2024-02-17] VITALS (18 sets, daily range): BP systolic 99–146; BP diastolic 66–89; PULSE 71–96; RESP 15–22; TEMP 36.2–37.1; O2SAT 91–95; BMI 27.0; BMI 25.4
[2024-02-17] MEDS: ketorolac 30 mg/mL INJ IVP (08:20)
[2024-02-17] MEDS: sodium chloride 0.9% 500 ML IV (08:20)
[2024-02-17] MEDS: scopolamine 1.5 Patch 1 PATCH TRANSDERMA (08:20)
[2024-02-17] MEDS: acetaminophen 1,000 MG/100 ML PIGGYBACK 400 MG IV ×3 (08:32→20:39)
[2024-02-17 08:40] LABS: Basophils % 1.1 %; Eosinophils # 0.1 10^3/uL (0.0-0.8); Eosinophils % 3.6 %; Lymphocytes # 1.5 10^3/uL (0.8-4.8); Lymphocytes % 42.7 %; Mean Corpuscular Hemoglobin 33.3 pg (27-33); Mean Corpuscular Volume 98.2 fl (82-101); Mean Platelet Volume 11.5 fL (7.4-10.4); Monocytes # 0.6 10^3/uL (0.2-0.9); Monocytes % 16.5 %; Neutrophils # 1.28 10^3/uL (1.8-7.7); Neutrophils % 35.8 %; Nucleated Red Blood Cells % 0 %; Platelet Count 138 10^3/cmm (157-399); Red Blood Count 4.38 10^6/uL (3.85-5.65); Red Cell Distribution Width 13.1 % (12.1-15.1); White Blood Count 3.58 10^3/uL (3.29-11.43)
[2024-02-17 08:50] LABS: Blood Urea Nitrogen 11 mg/dL (8-23); Carbon Dioxide 24 mmol/L (22-29); Chloride 105 mmol/L (98-107); Glomerular Filtration Rate 133.6 mL/min (90-130); Glucose 94 mg/dL (65-115); Osmolality Calculated 283 mOsm/kg (285-295); Sodium 137 mmol/L (136-145)
--- NOTE | 2024-02-17 08:52 | P.ANESASSM_ITS ---
Pre-Anesthetic Assessment Height/Weight: Height 1.8 m Weight 87.997 kg Temp Pulse Resp BP Pulse Ox O2 Del Method 97.2 F L 73 18 119/82 94 Room Air 02/17/24 07:55 02/17/24 07:55 02/17/24 07:55 02/17/24 07:55 02/17/24 07:55 02/17/24 07:55 Preop Diagnosis: Right Knee DJD Operation Date: 02/17/24 09:35 Proposed Procedures p Nael Robot Total Knee Arthroplasty(Right) - Rafael Plascencia DO Familial anesthetic complications: None Was Beta Tray taken within 24 hours: N/A Was Clonidine taken within 24 hours: N/A Last intake: Intake Last Liquid Date 02/16/24 Last Liquid Time 23:30 Last Solid Date 02/16/24 Last Solid Time 23:30 Social No alcohol and No tobacco HX ETOH Exam alert, oriented x 3, clear to auscultation bilaterally and regular rate & rhythm Airway Mallampati: Class II Comments: Comments: cervical spine fusion Pulmonary Chronic Obstructive Pulmonary Disease and Sleep Apnea CV/HEM Hypertension and Myocardial Infarction Neuropsych DBS for tremor, resolved subdural hematoma Anesthetic Plan ASA status: 3 Anesthesia: Regional (specify below) Risk of > 500 ml blood loss (7ml/kg in children): No Medications/Allergies Home Medications Medication Instructions Recorded Confirmed Last Taken Type albuterol sulfate 90 mcg/actuation 1 inh inhalation Q6H PRN Shortness 11/13/19 02/14/24 02/17/24 History breath activated powder inhaler Of Breath lactulose 10 gram/15 mL oral 10 gm PO BID 11/13/19 02/14/24 02/16/24 History solution tizanidine 4 mg capsule 4 mg PO TID PRN muscle spasticity 04/10/22 02/14/24 02/16/24 Rx #20 caps aspirin 81 mg chewable tablet 81 mg PO DAILY 09/03/22 02/14/24 2 Weeks Ago History ~01/31/24 fluticasone 250 mcg-salmeterol 50 1 inh inhalation BID 09/03/22 02/14/24 02/17/24 History mcg/dose blistr powdr for inhalation (Advair Diskus) hydrocodone 10 mg-acetaminophen 1 tab PO BID PRN Pain 09/03/22 02/14/24 02/17/24 History 325 mg tablet tamsulosin 0.4 mg capsule (Flomax) 0.4 mg PO DAILY 09/03/22 02/14/24 02/16/24 History Ulnar Gutter Fast Form #1 ea 04/18/23 12/31/23 Unknown Rx cock up splint #1 ea 05/20/23 12/31/23 Unknown Rx amlodipine 2.5 mg tablet 5 mg PO DAILY Blood Pressure 02/11/24 02/14/24 02/17/24 History primidone 50 mg tablet 50 mg PO .qd 02/11/24 02/14/24 02/17/24 History Allergies Allergy/AdvReac Type Severity Reaction Status Date / Time No Known Allergies Allergy Verified 02/11/24 12:24 Current Medications Generic Name Dose Route Start Last Admin Trade Name Freq PRN Reason Stop Dose Admin Scopolamine 1 patch 02/17/24 07:43 02/17/24 08:20 Scopolamine 1.5 Patch TRANSDERMA 1 patch ONCE PRN Administration anesthetic related nausea PFSH Anesthesia Medical History Right knee DJD Social History (Updated 02/14/24 @ 09:25 by July Rosario RN) Smoking and tobacco/nicotine status: never used tobacco/nicotine Alcohol intake: never Substance/Drug Use: never Data Anesthesia 02/17/24 08:17 02/17/24 08:12 Short CBC 02/17/24 Range/Units 08:17 WBC 3.58 (3.29-11.43) 10^3/uL Hgb 14.60 (11.27-16.99) g/dL Hct 43.0 (37-53) % MCV 98.2 (82-101) fl Plt Count 138 L (157-399) 10^3/cmm Neut % (Auto) 35.8 % Neut # (Auto) 1.28 L (1.8-7.7) 10^3/uL BMP 02/17/24 08:12 Sodium 137 Chloride 105 Carbon Dioxide 24 BUN 11 Glucose 94 Calcium 9.0 Cardiac Studies: 2 No Data to Display
--- NOTE | 2024-02-17 08:54 | ANES.PROC ---
Anesthesia Procedures Procedure/Date: 02/17/24 Nerve Block ^: Nerve Block 1: Main Anesthesia: spinal anesthesia block Time Out Performed: Yes Consent: requested by attending/covering physician, from patient, from other, risks and benefits reviewed and patient agrees to proceed Nerve block location: adductor canal (R) Anesthesia monitors applied: pulse oximetry, EKG, BP cuff and oxygen Nerve block position: supine Anesthetic Used: ropivicaine 0.5% (30 ml) and with decadron (4 mg) Ultrasound used to: recognize landmarks and visualize and ID femerol nerve Nerve Stimulator Used?: No Interscalene/Femoral BLK: 4 stimuplex 21 g needle used for position and inplane approach, visualize local anesthetic spread and no vascular puncture identified Injection: neg aspiration of heme Patient Tolerated Procedure: well Complications: none
[2024-02-17 08:55] LABS: Anion Gap 11.7 (5-19); Potassium 3.7 mmol/L (3.5-5.1)
--- NOTE | 2024-02-17 09:24 | W.PM.OPSFHP ---
Same Day Surgery H&P Indication for Procedure/HPI DATE OF PROCEDURE: February 17, 2024 CHIEF COMPLAINT/INDICATIONFOR SURGICAL PROCEDURE: Right knee degenerative joint disease PREOP DIAGNOSIS: Right Knee DJD PLANNED PROCEDURE: Operation Date: 02/17/24 09:35 Proposed Procedures p Nael Robot Total Knee Arthroplasty(Right) - Rafael Plascencia DO Medications/Allergies* Home Medications Medication Instructions Recorded Confirmed Type albuterol sulfate 90 mcg/actuation 1 inh inhalation Q6H PRN Shortness 11/13/19 02/14/24 History breath activated powder inhaler Of Breath lactulose 10 gram/15 mL oral 10 gm PO BID 11/13/19 02/14/24 History solution aspirin 81 mg chewable tablet 81 mg PO DAILY 09/03/22 02/14/24 History fluticasone 250 mcg-salmeterol 50 1 inh inhalation BID 09/03/22 02/14/24 History mcg/dose blistr powdr for inhalation (Advair Diskus) hydrocodone 10 mg-acetaminophen 1 tab PO BID PRN Pain 09/03/22 02/14/24 History 325 mg tablet tamsulosin 0.4 mg capsule (Flomax) 0.4 mg PO DAILY 09/03/22 02/14/24 History amlodipine 2.5 mg tablet 5 mg PO DAILY Blood Pressure 02/11/24 02/14/24 History primidone 50 mg tablet 50 mg PO .qd 02/11/24 02/14/24 History Allergies/Adverse Reactions Allergy/AdvReac Type Severity Reaction Status Date / Time No Known Allergies Allergy Verified 02/11/24 12:24 Current Medications: Generic Name Dose Route Start Last Admin Trade Name Freq PRN Reason Stop Dose Admin Scopolamine 1 patch 02/17/24 07:43 02/17/24 08:20 Scopolamine 1.5 Patch TRANSDERMA 1 patch ONCE PRN Administration anesthetic related nausea Pertinent History/Comorbid Conditions* Medical History (Updated 12/20/23 @ 10:21 by Bella Victor MD) Right knee DJD Social History Smoking and tobacco/nicotine status: never used tobacco/nicotine Alcohol intake: never Substance/Drug Use: never Pertinent Exam Findings alert, oriented x 3, operative site marked and procedure specific exam findings Refer to last office note on 12/31/2023 for detailed orthopedic examination of the right knee. Examination today there is no wounds to the right lower extremity, varus deformity noted Office visit 12/31/2023: Examination right knee: Examination the right knee subtle 5 degree varus deformity appreciated correctable on examination Patient has near full knee range of motion Crepitus on knee range of motion negative apprehension positive patellar grind Medial and lateral joint line tenderness to palpation pain with Elian's but no palpable click Stable varus valgus stress Negative Zhou's Mild palpable joint effusion Recommendations Surgery/Procedure today Other Plans: Plan to proceed to the OR today for right total knee arthroplasty Nael robotic assisted. He has been optimized to the preoperative clinic no changes in overall health since her last visit he has had no injections in 3 months at this point in time elects proceed with right total knee arthroplasty Nael robotic assisted. He understands the ins and outs procedure risk benefits complication alternatives of surgery through shared decision make elects proceed with surgical intervention today all questions answered. Coding Level of Care Code Acute Code for Chg Fwd
[2024-02-17] MEDS: ceFAZolin 2,000 MG in sodium chloride 0.9% (plus) 50 ML 100 MG IV ×3 (09:35→21:36)
[2024-02-17] MEDS: tranexamic acid 1,000 mg/10mL SDV 1000 MG IV (10:20)
[2024-02-17] MEDS: ROPivacaine premix 200 MG/100 ML PREMIX (10:56)
[2024-02-17] MEDS: ketorolac 30 mg/mL INJ XX (10:56)
[2024-02-17] MEDS: EPINEPHrine 1 mg/mL INJ XX (10:56)
[2024-02-17] MEDS: tranexamic acid 1,000 mg/10mL SDV 1000 MG IRRIGATION (10:56)
[2024-02-17] MEDS: vancomycin 1,000 MG SDV 1000 MG XX (11:05)
--- NOTE | 2024-02-17 12:02 | P.BOP_ITS ---
Date of Procedure:02/17/2024 Surgeon: Rafael Plascencia DO Button Maker And Installer(s): PRABHJOT Vazquez Procedure(s) performed: Right total knee arthroplasty?Nael robotic assisted Findings of the procedure(s): Patient had severe right knee degenerative joint disease underwent right total knee arthroplasty Nael robotic assisted without any issues or complications Estimated blood loss: 25 mL Specimen(s) removed: Tibia femur and patellar bone cuts removed Post-operative diagnosis: Right knee degenerative joint disease
--- NOTE | 2024-02-17 12:03 | P.OP_ITS ---
Operative Report Date of procedure: February 17, 2024 Surgeon: Rafael Plascencia DO Matrix Supervisor: PRABHJOT Vazquez Procedure: Preoperative diagnosis: Right knee degenerative joint disease Post-op diagnosis: Same Procedure done: Right total knee arthroplasty, cemented?robotic assisted Nael Implants: Peter triathlon size 5 femur CR cemented?Right Buffalo triathlon size? 5 tibia universal baseplate cemented Buffalo triathlon asymmetric patella size 32 mm Buffalo triathlon polyethylene 9mm Surgeon: Rafael Plascencia DO Estimated blood?loss: 25 mL Tourniquet 65minutes IV fluids: 700 mL Urine output: 600 mL Complications: None Condition: stable Disposition: floor Brief History: Patient is a 68-year-old male with with chronic?Right knee degenerative joint disease.? Patient has been worked up in the outpatient setting in the orthopedic office at this point time through shared decision making given? [id number] arthritis as well as failed conservative treatment, and pt would?like to proceed with a?Right total knee arthroplasty.? Through shared decision making elected to proceed with surgical intervention for?Right total knee arthroplasty.? We talked about continued conservative treatment and surgical intervention as far as the risk benefits complications alternatives surgical and nonsurgical treatment options.? At this point time understanding patient risks with surgery he agrees to proceed with surgical intervention.? Once again? risk with surgery include but are not?limited to make it better make it worse blood clot, heart attack, st roke, on the table, infection, injury to nerves or vessels, persistent pain, arthrofibrosis, implant failure.? Understanding these risks patient agrees to proceed with surgical intervention consent was obtained in the office.? All questions answered. Procedure: Patient was seen and evaluated in the preoperative holding area.? Consent was reviewed and signed with patient with plan for?Right total knee arthroplasty.? All questions answered.? Correct extremity marked.? Patient seen and evaluated by the anesthesia department and once cleared for surgery was taken back to the operative suite.? Patient was placed into a supine position on the OR table.? All bony prominences were well-padded.? Patient was appropriately secured to the bed.? Patient underwent anesthesia per the anesthesia department.? Patient received spinal anesthesia and? Choi catheter was placed.? A nonsterile tourniquet was applied to the?Right thigh.? At this point in time a final timeout performed.? Patient received appropriate preoperative antibiotics and TXA. Next the?Right?lower extremity was then prepped and draped in standard orthopedic fashion. Esmarch tourniquet was used exsanguinate the?Right?lower extremity.? Tourniquet was insufflated to 250 mmHg. A standard anterior incision was made over midline of the knee.? Sharp scalpel excision through skin and subcutaneous tissue full-thickness skin flaps were made.? Fascia was elevated off of the extensor retinaculum was stable with medial parapatellar arthrotomy was then made.? The performed standard sequential releases..? Immediately on entry into the joint patient was found to have severe eburnated bone and tricompartmental arthritic changes noted.? With significant osteophyte formation.? Next the the patella was then stuffed and the knee was then flexed.?? Rosalinda was placed superiorly around the anterior aspect of the femur this was freed of synovium and I subsequently then placed by 2 femur pins to establish my femur arrays for the Nael robot.? These were then placed bicortically and? femur array was then appropriately secured with appropriate visualization.? Next attention was turned towards the tibial rays.? These were then drilled sequentially bicortically in parallel fashion and intraincisional.? I then placed my guide as well as my tibial array on in place.? This was appropriately secured and had excellent visualization with the Nael robot.? Next the tibial checkpoint as well as femur checkpoint were then placed.? At this point time I then subsequently established my head center as well as my medial?lateral malleoli as well as my checkpoints.? Next utilizing standard Nael technology I then mapped out the appropriate points and confirmation points around the femur as well as the tibia in standard fashion.? Once this was then done I then removed all osteophytes in preparation for dynamic testing.? All osteophytes were removed as well as I removed the ACL and the PCL was excised due to its significant tearing and degeneration noted.? At this point time the knee was brought into full extension and we performed our standard evaluation of our gap balancing stressing his?ligaments and extension as well as flexion appropriate adjustments were made to have appropriate gap balancing in both flexion and extension.? This plan for final counts.? We get a preoperative plan evaluating our implants which was a size 5 femur and a size 5 tibia.? Next we brought in the Nael robot and sequentially made our femur cuts.? All excess bony cuts were then removed.? Finally we made our tibial cut.? Once this was done a standard PCL retractor was then placed into this position I excised the medial and?lateral meniscus.? The tibial cut was then subsequently removed all excess bony debris was removed.? I then utilized a?lamina trailhead construction worker and remove the posterior osteophytes.? At this point time sized the tibia and confirmed this was a size 5.? I utilized our blunt probe to establish rotation of tibial implant.? Once this was done I then placed my tibia size 5 trial in appropriate position and then subsequently placed tibial pins to hold this into place placed a size 9 mm poly as well as a size 5 femur which was appropriately impacted in place knee was then subsequently brought into extension. Trials were then assessed,? this was stable with varus valgus stress in extension as well as had symmetrical translation when brought into flexion demonstrating symmetrical gaps. I had excellent balance gaps in flexion and extension with varus and valgus stresses.? At this point I was satisfied with these implants these were then verified and opened on the back table size 5 tibia, size 5 femur,? size 9 mm polythickness.? We did confirm appropriate gap balancing and stresses as well as alignment utilizing? [employer] and were satisfied with this plan.? ?At this point time with my trials in place I then towel clip the patella everted this made appropriate measurements subsequently utilizing freehand technique performed by patellar resurfacing this was confirmed to be appropriate resection and subsequently sized to be a 32 mm asymmetric.? My drill peg guides were then clamped and appropriate position and appropriate position in the patella for appropriate tracking and parallel with the joint.? Pegs were drilled trial implant was placed and the knee was then subsequently ranged and found to have excellent patellar tracking.? Femur pegs were then drilled.? Satisfied with our tibial placement rotation I then utilized the keel punch and prepped the tibia.? At this point time all of our trial implants were removed.? All checkpoints as well as guidepins and arrays were removed and appropriate counts made.? The wound bed? was thoroughly irrigated and dried and prepped for cementation.? Cement was mixed on the back table.? Once cement was ready this was then covered onto the tibia and the tibial baseplate was then impacted and all excess cement was removed.? Next the polyethylene was then impacted into place on the tibial baseplate.? Next cement was placed onto the femur as well as under the femur implants and impacted in to place and all excess cement was extruded and removed.? Knee was taken into full extension? to clear all excess cement was removed.? Warm saline was placed over the joint.? I then towel clip patella and dried for cementation. cemented the patella into place.? This was all clamped and the cement was allowed to cure.? Thorough irrigation performed with pulse?lavage.? I then placed my periarticular injection while the cement was curing.? Once cured the knee was taken through range of motion and had excellent stability and gaps were balanced in flexion and extension.? Tourniquet was then deflated. hemostasis satisfactory with electrocautery.? Vancomycin powder was placed in wound for infection prophylaxis. Next I then subsequently closed the capsule with Ethibond suture as well as a running strata fix suture.? Knee was then taken through range of motion, stable patella and satisfactory joint closure.? Next the skin was then closed in?layered fashion of running stratifix sutures of deep and subcutenous tissue and skin.? ?closed in flexion and Prineo glue was then placed over the incision this allowed to cure.? Incision was covered with kaity, with ABDs soft roll and Jered wrap.? Patient was then awakened from anesthesia and taken to PACU in stable condition. Disposition: Patient taken to PACU in stable condition will be admitted to the floor for pain control PT/OT weight-bear as tolerated?Right?lower extremity dressing changes as needed, DVT prophylaxis. Pain control. Patient will receive appropriate postoperative antibiotics. patient will be seen today by the internal medicine team for medical management.? Patient will follow up with the office in 2 weeks.? Patient understands agrees with current plan.? All questions answered.
--- NOTE | 2024-02-17 12:16 | XR_ITS ---
WS: [id number] KNEE RIGHT TECHNIQUE: 2 views of the right knee CLINICAL INFORMATION: s/p r tka COMPARISON: CT 02/07/2024 FINDINGS: Recent postoperative changes RIGHT TKA with patellar resurfacing. Hardware appears in good position. IMPRESSION: Normal for postoperative purposes Kellgren-Willian Classification: NA
--- NOTE | 2024-02-17 12:45 | ANE.PACU2 ---
Inpatient post-anesthesia follow up: Airway intact: Yes Vital signs: Temperature 97.9 F Pulse Rate 77 Respiratory Rate 18 Blood Pressure 133/89 Pulse Oximetry 95 Oxygen Delivery Me thod Nasal Cannula Oxygen Flow Rate 2 Fraction of Inspir ed Oxygen Hydration adequate: Yes Nausea and vomiting: No Pain level: 1 Mental status: Baseline
[2024-02-17] MEDS: chlorhexidine gluconate 0.12% Btl 473 mL 30 ML MUCOUS MEM ×3 (13:47→20:38)
[2024-02-17] MEDS: lactated ringers 1,000 ML 100 ML IV (13:48)
[2024-02-17] MEDS: tranexamic acid 1,000 MG/100 ML PREMIX 600 MG IV (15:36)
--- NOTE | 2024-02-17 17:11 | P.CONIM_ITS ---
Providers/Reason For Consult 2 Consulting Physician/Specialty*: Dr Zepeda Reason for Consult*: Medical mangement of chronic isssues Requesting Physician: Dr Plascencia Attending Physician: Rafael Plascencia DO Primary Care Provider: Courtney Duran MD History of Present Illness History of Present Illness Martinez Desai is a 68 year old male with history of hypertension BPH asthma is here s/p right knee replacement. He is hemodynamically stable for now, medical team being consulted for his chronic issues. Review of Systems 2 General: Reports: 10 or more systems reviewed and unremarkable except in HPI and below Medications/Allergies Home Medications Medication Instructions Recorded Confirmed Last Taken Type albuterol sulfate 90 mcg/actuation 1 inh inhalation Q6H PRN Shortness 11/13/19 02/14/24 02/17/24 History breath activated powder inhaler Of Breath lactulose 10 gram/15 mL oral 10 gm PO BID 11/13/19 02/14/24 02/16/24 History solution tizanidine 4 mg capsule 4 mg PO TID PRN muscle spasticity 04/10/22 02/14/24 02/16/24 Rx #20 caps aspirin 81 mg chewable tablet 81 mg PO DAILY 09/03/22 02/14/24 2 Weeks Ago History ~01/31/24 fluticasone 250 mcg-salmeterol 50 1 inh inhalation BID 09/03/22 02/14/24 02/17/24 History mcg/dose blistr powdr for inhalation (Advair Diskus) hydrocodone 10 mg-acetaminophen 1 tab PO BID PRN Pain 09/03/22 02/14/24 02/17/24 History 325 mg tablet tamsulosin 0.4 mg capsule (Flomax) 0.4 mg PO DAILY 09/03/22 02/14/24 02/16/24 History Ulnar Gutter Fast Form #1 ea 04/18/23 12/31/23 Unknown Rx cock up splint #1 ea 05/20/23 12/31/23 Unknown Rx amlodipine 2.5 mg tablet 5 mg PO DAILY Blood Pressure 02/11/24 02/14/24 02/17/24 History primidone 50 mg tablet 50 mg PO .qd 02/11/24 02/14/24 02/17/24 History Allergies Allergy/AdvReac Type Severity Reaction Status Date / Time No Known Allergies Allergy Verified 02/11/24 12:24 Current Medications Generic Name Dose Route Start Last Admin Trade Name Lakhwinder PRN Reason Stop Dose Admin Chlorhexidine Gluconate 30 ml 02/17/24 13:24 02/17/24 13:47 Chlorhexidine Gluconate 0.12% Btl 473 Ml MUCOUS MEM 30 ml QID JAIMIE Administration Acetaminophen 1,000 mg in 100 mls @ 400 mls/hr 02/17/24 13:24 02/17/24 14:35 Acetaminophen IV 02/18/24 05:38 Infused Q8H JAIMIE Infusion Cefazolin Sodium 2,000 mg/ 50 mls @ 100 mls/hr 02/17/24 13:24 02/17/24 14:42 Sodium Chloride IV 02/18/24 05:53 Infused Q8H JAIMIE Infusion Protocol Lactated Ringer's 1,000 mls @ 100 mls/hr 02/17/24 13:24 02/17/24 13:48 Lactated Ringers IV 100 mls/hr .Q10H JAIMIE Administration Scopolamine 1 patch 02/17/24 07:43 02/17/24 08:20 Scopolamine 1.5 Patch TRANSDERMA 1 patch ONCE PRN Administration anesthetic related nausea PFSH Acute 2 PFSH: Medical History Right knee DJD Social History Smoking and tobacco/nicotine status: never used tobacco/nicotine Alcohol intake: never Substance/Drug Use: never Vitals/I&O/Wt Last Vital Signs Temp 97.9 F 02/17/24 15:50 Pulse 80 02/17/24 15:50 Resp 18 02/17/24 15:50 BP 137/84 02/17/24 15:50 Pulse Ox 93 02/17/24 15:50 O2 Del Method Nasal Cannula 02/17/24 15:50 O2 Flow Rate 3 02/17/24 15:06 02/17/24 02/17/24 02/17/24 06:59 14:59 22:59 Intake Total 1000 / 1000 100 / 1100 Output Total 625 / 625 Balance 375 / 375 100 / 475 Weight last 48 hrs Weight 92.487 kg Weight 87.997 kg Physical Exam 2 Narrative: He is alert awake oriented x 3, comfortable, not in acute distress Chest is clear to auscultation bilaterally Cardiovascular normal heart sounds Abdomen NAD Extremities restricted range of motion and right lower extremity, compression bandage seen, no edema seen in left lower extremity Urinary Catheter Management: Choi: Cath Placed During This Visit: yes Urinary Catheter Date of Insertion: 02/17/24 Urinary Catheter Time of Insertion: 10:00 Data 02/17/24 08:17 02/17/24 08:12 A&P Assessment and plan (1) Right knee DJD: Plan Right knee degenerative disease s/p right knee replacement today Will follow-up Ortho for further management Pain control with IV Dilaudid and Toradol as needed Continue IV cefazolin for now Hypertension-stable Continue home medication Norvasc 5 mg daily Continue aspirin 81 mg p.o. daily BPH Continue Flomax 0.4 mg p.o. daily GI prophylaxis with IV pantoprazole 40 mg twice daily DVT prophylaxis with p.o. Eliquis 2.5 mg twice daily Carb consistent diet CODE STATUS discussed with patient he is full code for now. Consult Attestations 2 Medical Necessity Statement: He is here for s/p right knee replacement. Stable and needs social work consult for subacute long term facility placement Time Spent in Patient Care: 25 minutes Coding Level of Care Code 10979 Diagnoses Right knee DJD M17.11 Time Spent (min) 25
[2024-02-17] MEDS: mupirocin oint 22 gm 1 APPLIC NASAL (17:50)
[2024-02-17] MEDS: calcium carb-vit d 600mg/400unit 1 Tablet 1 EACH PO (17:51)
[2024-02-17] MEDS: ketorolac 30 mg/mL INJ 15 MG IVP (17:51)
[2024-02-17] MEDS: docusate sodium 100 mg Capsule PO (17:52)
[2024-02-17] MEDS: oxyCODONE 5 mg IR Tab/Cap PO ×2 (17:52→23:11)
[2024-02-17] MEDS: iron polysaccharide complex 150 mg Capsule PO (17:52)
[2024-02-18] VITALS (7 sets, daily range): BP systolic 162–182; BP diastolic 90–96; PULSE 87–101; RESP 16–19; TEMP 36.8–37.1; O2SAT 90–98
[2024-02-18] MEDS: lactated ringers 1,000 ML 100 ML IV (02:50)
[2024-02-18] MEDS: oxyCODONE 5 mg IR Tab/Cap PO ×3 (04:40→13:26)
[2024-02-18] MEDS: acetaminophen 1,000 MG/100 ML PIGGYBACK 400 MG IV (05:10)
[2024-02-18 05:19] LABS: Basophils % 0.1 %; Hematocrit 39.6 % (37-53); Lymphocytes # 1.1 10^3/uL (0.8-4.8); Lymphocytes % 9.4 %; Mean Corpuscular HGB Conc 33.8 g/dL (30-55); Mean Corpuscular Hemoglobin 32.9 pg (27-33); Mean Corpuscular Volume 97.3 fl (82-101); Mean Platelet Volume 12.2 fL (7.4-10.4); Monocytes # 1.5 10^3/uL (0.2-0.9); Monocytes % 12.6 %; Neutrophils # 9.34 10^3/uL (1.8-7.7); Neutrophils % 77.2 %; Nucleated Red Blood Cells % 0 %; Platelet Count 128 10^3/cmm (157-399); Red Blood Count 4.07 10^6/uL (3.85-5.65); Red Cell Distribution Width 13.2 % (12.1-15.1); White Blood Count 12.09 10^3/uL (3.29-11.43)
[2024-02-18] MEDS: ceFAZolin 2,000 MG in sodium chloride 0.9% (plus) 50 ML 100 MG IV (05:40)
[2024-02-18 05:42] LABS: Anion Gap 13.8 (5-19); Blood Urea Nitrogen 10 mg/dL (8-23); Calcium 8.9 mg/dL (8.5-10.5); Carbon Dioxide 22 mmol/L (22-29); Chloride 107 mmol/L (98-107); Creatinine Clr Calc Pharmacy 109.7734; Glomerular Filtration Rate 111.8 mL/min (90-130); Glucose 121 mg/dL (65-115); Osmolality Calculated 288 mOsm/kg (285-295); Potassium 3.8 mmol/L (3.5-5.1); Sodium 139 mmol/L (136-145)
--- NOTE | 2024-02-18 07:14 | PC.PHAR ---
Addendum entered by Radha Pozo 02/18/24 08:51: [facility]s states they havent filled pain meds for the pt Addendum entered by Radha Pozo 02/18/24 08:47: [facility]medications entered are from what was on pts [facility] med list-[facility] daley had entered flomax 0.4mg daily and norco 10-325mg one tab bid prn those two medications were not on the pts va med list-pt states he does take a pain med norco but is unsure of the mg-again not on va med list but was updated by denise daley on 02/14/24 Addendum entered by Radha Pozo 02/18/24 08:05: PT STATES WHATEVER IS ON HIS [facility] MED LIST IS WHAT HE TAKES PT STATES UNSURE OF MG OF MEDS-STILL WAITING ON [facility] MED LIST TO BE FAXED BACK Original Note: faxed [facility] for med list
[2024-02-18] MEDS: multivitamin therapeutic Tablet 1 TAB PO (09:00)
[2024-02-18] MEDS: mupirocin oint 22 gm 1 APPLIC NASAL (09:01)
[2024-02-18] MEDS: docusate sodium 100 mg Capsule PO (09:01)
[2024-02-18] MEDS: iron polysaccharide complex 150 mg Capsule PO (09:01)
[2024-02-18] MEDS: amlodipine 5 mg Tablet PO (09:01)
[2024-02-18] MEDS: apixaban 5 mg Tablet 2.5 MG PO (09:01)
[2024-02-18] MEDS: calcium carb-vit d 600mg/400unit 1 Tablet 1 EACH PO (09:01)
[2024-02-18] MEDS: chlorhexidine gluconate 0.12% Btl 473 mL 30 ML MUCOUS MEM (09:02)
--- NOTE | 2024-02-18 09:02 | PC.CHAP ---
Pastoral Care Encounter/Spiritual Assessment Type of Contact [] Declined taxation agent visit [] Patient/Family/Request visit [] Outpatient visit [] Follow-up visit [] Physician referral [] Code/Alert [x] Routine visit [] Staff referral [] Actively dying [] Patient sleeping [] Family support [] [] Out of room [] Palliative care [] [] Receiving care in room [] Pre-surgical visit [] Trauma [] Long length of stay [] ICU visit [] Other: Relational/Emotional Strength [x] Patient feels connected with others/family/visitors/staff [] Distress [] Loneliness/isolation [] Abandonment Spirituality of Patient [x] Person of Katia [] Attends Nondenominational of their Katia [x] Believes in Prayer [] Reads Bible or Yarsanism materials [] There are Spiritual issues to be addressed Quality Assurance Lead Interventions [x] Prayer [x] Active listening [] Non-anxious presence [x] Spiritual/emotional support [] Crisis/trauma care [] Spiritual counseling [] Bereavement support [] Provided bereavement packet [] Provided Bible/devotional materials [] Provided toy/stuffed animal, coloring book to patient or family member [] Provided Communion [] Anointing/[place] [] Salvation [x] Completed spiritual assessment [] Other: Impact on Illness or Injury [] Angry [] Fearful [] Anxious [] Often cries [] Exhaustion [] Unable to work [] Unable to attend amish [] Unable to walk/stand [] Unable to read [] Unable to drive [] Unable to eat/drink [] Unable to sleep [] Unable to be with family [] Patient intubated [] Other: Summary Time spent with patient 5 min
--- NOTE | 2024-02-18 10:33 | P.PN_ITS ---
Subjective 2 Subjective: No acute overnight events noted. He feels better, laying comfortably in bed. Medications: Reviewed: Yes Vitals/I&O/Wt Last Vital Signs Temp 98.8 F 02/18/24 07:34 Pulse 87 02/18/24 07:34 Resp 19 H 02/18/24 09:00 BP 182/96 02/18/24 07:34 Pulse Ox 93 02/18/24 09:00 O2 Del Method Room Air 02/18/24 07:34 O2 Flow Rate 2 02/17/24 19:56 02/17/24 02/18/24 02/18/24 22:59 06:59 14:59 Intake Total 1330 / 2330 1600 / 3930 Output Total 750 / 1375 400 / 1775 Balance 580 / 955 1200 / 2155 Weight last 48 hrs Weight 95.889 kg Weight 92.487 kg Weight 87.997 kg Physical Exam 2 Narrative: He is alert awake oriented x 3, comfortable, not in acute distress Chest is clear to auscultation bilaterally Cardiovascular normal heart sounds Abdomen NAD Extremities restricted range of motion and right lower extremity, compression bandage seen, no edema seen in left lower extremity Urinary Catheter Management: Choi: Cath Placed During This Visit: yes, but has since been removed by the nurse Reason for Continuing Indwelling Catheter: Decision to DC Catheter Urinary Catheter Date of Insertion: 02/17/24 Urinary Catheter Time of Insertion: 10:00 Date Urinary Catheter Removed: 02/18/24 Time Urinary Catheter Discontinued: 06:01 Data 02/18/24 04:37 02/18/24 04:37 A&P Assessment and plan (1) Right knee DJD: Plan Right knee degenerative disease s/p right knee replacement today Will follow-up Ortho for further management Pain control with IV Dilaudid and Toradol as needed Continue IV cefazolin for now Hypertension-stable Continue home medication Norvasc 5 mg daily Continue aspirin 81 mg p.o. daily BPH Continue Flomax 0.4 mg p.o. daily GI prophylaxis with IV pantoprazole 40 mg twice daily DVT prophylaxis with p.o. Eliquis 2.5 mg twice daily Carb consistent diet CODE STATUS discussed with patient he is full code for now. Will discuss plan for discharge with Ortho today. Attestations 2 Medical Necessity Statement*: He is doing well, waiting for discharge to home with home health aide services. Time Spent in Patient Care: 20 minutes Coding Level of Care Code Acute Code for Chg Fwd Diagnoses Right knee DJD M17.11 Time Spent (min) 20
[2024-02-18] MEDS: ketorolac 30 mg/mL INJ 15 MG IVP (10:58)
--- NOTE | 2024-02-18 14:14 | PC.NURSE ---
d/c pending transportation home.
[2024-02-18] MEDS: TRAMadol 50 mg Tablet PO (15:09)
== END 2024-02-18 15:23 | disposition home health service (06) ==
LOC: MEDSURG 11:42
PROVIDERS: Admitting Provider Student in an Organized Health Care Education/Training Program; PCP Family Medicine; Visit Provider Student in an Organized Health Care Education/Training Program
PROC: 8E0Y0CZ Robotic Assisted Procedure of Lower Extremity, Open Approach (ICD-10-PCS; CPT 27447; principal; 2024-02-17 09:35)
DX: M17.11 Unilateral primary osteoarthritis, right knee (principal); I10 Essential (primary) hypertension; N40.0 Benign prostatic hyperplasia without lower urinary tract symptoms; I25.2 Old myocardial infarction; Z79.82 Long term (current) use of aspirin
CPT/HCPCS: 20985; 27447; 36415; 51702; 73560; 80048; 80503; 85025; 86850; 86870; 86900; 86920; 97116; 97161; 97165; 97530; C1776; G0378; J0131; J0171; J0690; J1100; J1170; J1885; J2250; J2405; J2704; J2710; J2795; J3010; J3370; J3490; J7040; J7120

== ENCOUNTER → 2024-03-03 12:35 | Outpatient (BNVA) | payer OTHER, SELFPAY | PROVIDERS: PCP Family Medicine; Visit Provider Specialist | DX: R29.90 Unspecified symptoms and signs involving the nervous system (principal); Z96.89 Presence of other specified functional implants; Z45.42 Encounter for adjustment and management of neurostimulator; G25.0 Essential tremor | CPT/HCPCS: 95971; 95983; 99214 ==

== ENCOUNTER → 2024-03-10 09:41 | Outpatient (BNVA) | payer OTHER, SELFPAY | PROVIDERS: PCP Family Medicine; Visit Provider Physician Assistant | DX: Z96.651 Presence of right artificial knee joint (principal) | CPT/HCPCS: 73560; 73565; 99024 ==

== ENCOUNTER 2024-03-26 13:01 | Emergency (ER) | payer OTHER, SELFPAY ==
[2024-03-26 13:11] VITALS: BP 142/90; PULSE 88; RESP 16; TEMP 36.6; O2SAT 92
--- NOTE | 2024-03-26 13:26 | CT_ITS ---
WS: [id number] CT HEAD TECHNIQUE: Noncontrast CT of the head obtained from the skullbase to the vertex. CLINICAL INFORMATION: trauma COMPARISON: CT 01/09/2024 DLP: 1477.[address] scans at [facility] use at least one of these dose optimization techniques: automated e xposure control; mA and/or kV adjustment per patient size (includes targeted exams where dose is matc hed to clinical indication); or iterative reconstruction. FINDINGS: Small amount of acute subarachnoid hemorrhage in the RIGHT frontal lobe. No mass effect or midline shift. No extra-axial fluid collections. Vascular calcification. Stable deep brain stimulator leads. Moderate small vessel changes with moderate parenchymal volume loss. Mild mucosal thickening in the paranasal sinuses. Mastoid air cells are well aerated. Normal posterio r nasopharynx. Partially visualized C1 ring fracture will be discussed on the cervical spine CT. CT/CT head wo con* [id number] IMPRESSION: 1. Small amount of acute subarachnoid hemorrhage in the RIGHT frontal lobe. No mass effect or midline shift. 2. No extra-axial fluid collections. 3. Stable deep brain stimulator leads. Notified Durga Saul DO at 03/26/2024 2:26 PM.
[2024-03-26 13:30] VITALS: BP 174/96; PULSE 81; O2SAT 96
--- NOTE | 2024-03-26 13:33 | CT_ITS ---
WS: [id number] CT CERVICAL TRAUMA TECHNIQUE: Noncontrast CT of the cervical spine with coronal and sagittal reformatted images. CLINICAL INFORMATION: trauma/pain DLP: 1477.[address] scans at [facility] use at least one of these dose optimization techniques: automated e xposure control; mA and/or kV adjustment per patient size (includes targeted exams where dose is matc hed to clinical indication); or iterative reconstruction. FINDINGS:Acute type II dens fracture with posterior angulation and displacement of the distal fragmen t relative to the base of the dens. Posterior subluxation measures 4.2 mm with mild dorsal angulation . In addition, anterior C1 ring fracture with widening measuring 3.1 mm. Mastoid air cells are well aerated. Normal occipital condyles. Slight anterolisthesis C4 on C5. Moder ate spondylitic changes. No other visualized acute fractures. CT/CT cervical spin wo con* [id number] IMPRESSION: 1. Type II dens fracture with mild dorsal angulation and posterior displacemen t of the distal fragment measuring 4 mm 2. Anterior C1 ring fracture with 3 mm of widening. 3. No other acute fractures.
--- NOTE | 2024-03-26 13:37 | ED_ITS ---
HPI - Fall 2 General: Chief Complaint: Fall Stated Complaint: fallen 2 times within 30 hours, confusion, dizzy Time Seen by Provider: 03/26/24 13:24 Source: patient Mode of arrival: ambulatory History of Present Illness: 69-year-old male presents to the emergen cy room after a fall. Patient had multiple falls at home for last couple days history history of Parkinson's. Patient is fallen several times over the last couple of days has several abrasions on the forehead. He is complaining of feeling fatigued having a headache he has had a head trauma in the past. Also complaining of neck pain. Denies any chest pain or shortness of breath. MD complaint: fall Onset (ago): minute(s) Fall from: standing Fall witnessed: yes, by family Place fall occurred: home Loss of consciousness: None Context: tripped/slipped Associated symptoms-after fall: Denies abdominal pain, chest pain, confusion, difficulty walking, headache(s), hematuria, lightheadedness, neck pain, numbness, short of breath, vertigo or weakness Review of Systems 2 Const: Denies: fever(s) or chills Card: Denies: chest pain or lightheadedness Resp: Denies: dyspnea GI: Denies: abdominal pain : Denies: hematuria Musc: Denies: neck pain Skin/Breast: Denies: rash Neuro: Denies: headache(s), difficulty walking, vertigo or confusion PFSH ED 2 PFSH: Medical History Right knee DJD Social History Smoking and tobacco/nicotine status: never used tobacco/nicotine Alcohol intake: never Substance/Drug Use: never Physical Exam 2 Const: COMMON NORMALS: no acute distress GENERAL APPEARANCE: cooperative and comfortable ORIENTATION/CONSCIOUSNESS: Yes awake HENMT: COMMON NORMALS: normocephalic, atraumatic and hearing grossly normal bilaterally HEAD & SCALP: normocephalic and atraumatic Resp: COMMON NORMALS: normal respiratory effort, No retractions, No use of accessory muscles and clear to auscultation bilaterally AUSCULTATION: clear to auscultation bilaterally Cardio: COMMON NORMALS: regular rate, regular rhythm and No murmurs present (Cardio) RATE: regular rate RHYTHM: regular rhythm GI: COMMON NORMALS: Soft to palpation and No hepatosplenomegaly present A USCULTATION: Yes normoactive bowel sounds PALPATION: Yes Soft to palpation, No Tenderness to palpation present (GI), No Guarding due to palpation present (GI) and Yes No hepatosplenomegaly present Extremity: COMMON NORMALS: normal to inspection, capillary refill normal, no clubbing, cyanosis or edema, no calf tenderness and no pedal edema Skin: COMMON NORMALS: no rashes or lesions noted GENERAL SKIN EXAM: no rashes or lesions noted Course 2 Vital Signs: Vital signs: Vital Signs Temperature 98 F 03/26/24 13:11 Pulse Rate 87 03/26/24 15:06 Respiratory Rate 18 03/26/24 16:05 Blood Pressure 156/106 03/26/24 16:04 Pulse Oximetry 93 03/26/24 16:05 Oxygen Delivery Me thod Room Air 03/26/24 15:06 MDM - Fall Medical Decision Making CT shows subarachnoid hemorrhage. Additionally there is a C1 ring fracture and a type II dens fracture. There is 4 mm displacement of the dens posteriorly. Will transfer to [facility] for trauma. Patient placed in a [place] J collar for transfer to keep stabilized. Medical Records I reviewed the patient's medical records. Lab Data I reviewed the patient's lab results. 03/26/24 13:38 03/26/24 13:[address] 03/26/24 13:26 IMPRESSION: 1. Small amount of acute subarachnoid hemorrhage in the RIGHT frontal lobe. No mass effect or midline shift. 2. No extra-axial fluid collections. 3. Stable deep brain stimulator leads. Notified Durga Saul DO at 03/26/2024 2:[address] 03/26/24 13:33 IMPRESSION: 1. Type II dens fracture with mild dorsal angulation and posterior displacement of the distal fragment measuring 4 mm 2. Anterior C1 ring fracture with 3 mm of widening. 3. No other acute fractures. Laboratory Results WBC 6.60 10^3/uL (3.29-11.43) 03/26/24 13:38 RBC 4.38 10^6/uL (3.85-5.65) 03/26/24 13:38 Hgb 14.00 g/dL (11.27-16.99) 03/26/24 13:38 Hct 41.3 % (37-53) 03/26/24 13:38 MCV 94.3 fl (82-101) 03/26/24 13:38 MCH 32.0 pg (27-33) 03/26/24 13:38 MCHC 33.9 g/dL (30-55) 03/26/24 13:38 RDW 12.9 % (12.1-15.1) 03/26/24 13:38 Plt Count 147 10^3/cmm (157-399) L 03/26/24 13:38 MPV 11.2 fL (7.4-10.4) H 03/26/24 13:38 Neut % (Auto) 57.2 % 03/26/24 13:38 Lymph % (Auto) 24.8 % 03/26/24 13:38 [place] % (Auto) 16.7 % 03/26/24 13:38 Eos % (Auto) 0.5 % 03/26/24 13:38 Baso % (Auto) 0.6 % 03/26/24 13:38 Neut # (Auto) 3.78 10^3/uL (1.8-7.7) 03/26/24 13:38 Lymph # (Auto) 1.6 10^3/uL (0.8-4.8) 03/26/24 13:38 [place] # (Auto) 1.1 10^3/uL (0.2-0.9) H 03/26/24 13:38 Eos # (Auto) 0.0 10^3/uL (0.0-0.8) 03/26/24 13:38 Baso # (Auto) 0.0 10^3/uL (0.0-0.1) 03/26/24 13:38 Nucleated RBC % (auto) 0 % 03/26/24 13:38 Nucleated RBCs # 0.0 /100WBC 03/26/24 13:38 Sodium 135 mmol/L (136-145) L 03/26/24 13:38 Potassium 3.3 mmol/L (3.5-5.1) L 03/26/24 13:38 Chloride 101 mmol/L (98-107) 03/26/24 13:38 Carbon Dioxide 24 mmol/L (22-29) 03/26/24 13:38 Anion Gap 13.3 (5-19) 03/26/24 13:38 BUN 8 mg/dL (8-23) 03/26/24 13:38 Creatinine 0.6 mg/dL (0.7-1.2) L 03/26/24 13:38 GFR Calculation 133.2 mL/min (90-130) H 03/26/24 13:38 Glucose 101 mg/dL (65-115) 03/26/24 13:38 Calculated Osmolality 278 mOsm/kg (285-295) L 03/26/24 13:38 Calcium 8.9 mg/dL (8.5-10.5) 03/26/24 13:38 Total Bilirubin 1.4 mg/dL (0.15-1.2) H 03/26/24 13:38 AST 25 U/L (0-40) 03/26/24 13:38 ALT 17 U/L (0-41) 03/26/24 13:38 Alkaline Phosphatase 140 U/L (40-130) H 03/26/24 13:38 Total Protein 7.0 g/dL (6.6-8.7) 03/26/24 13:38 Albumin 3.4 g/dL (3.5-5.2) L 03/26/24 13:38 Globulin 3.6 g/dL (1.3-4.6) 03/26/24 13:38 Urine Color Yellow (Yellow) 03/26/24 14:15 Urine Appearance Clear (CLEAR) 03/26/24 14:15 Urine pH 6.5 (5-7) 03/26/24 14:15 Ur Specific [place] 1.010 (1.005-1.030) 03/26/24 14:15 Urine Protein Neg (Negative) 03/26/24 14:15 Urine Glucose (UA) Norm (Normal) 03/26/24 14:15 Urine Ketones Negative (Negative) 03/26/24 14:15 Urine Blood Neg (Negative) 03/26/24 14:15 Urine Nitrate Negative (Negative) 03/26/24 14:15 Urine Bilirubin Neg (Negative) 03/26/24 14:15 Urine Urobilinogen 4+ mg/dL (Negative) H 03/26/24 14:15 Ur Leukocyte Esterase Negative (Negative) 03/26/24 14:15 All radiology interpretation(s) finalized by discharge Discharge Plan Discharge Patient Disposition: Transfer to ED Clinical Impression: Subarachnoid hemorrhage, Closed cervical spine fracture Condition: Stable Prescriptions: No Action albuterol sulfate 90 mcg/actuation aerosol powdr breath activated 2 inh INHALATION QID PRN (Reason: Shortness Of Breath) lactulose 10 gram/15 mL solution 30 ml PO BID (DME) Ulnar Gutter Fast Form See Rx Instructions .Route .MEDSUPPLY Qty: 1 0RF Rx Instructions: As directed (DME) cock up splint See Rx Instructions .Route .MEDSUPPLY Qty: 1 0RF Rx Instructions: As directed primidone 50 mg tablet See Rx Instructions .ROUTE .COMPLEX Rx Instructions: TAKE 2 TABLETS BY MOUTH TWICE DAILYFOR 1 MONTH, THEN USE NEEDED.(okay to skip doses and use prn) hydrocodone-acetaminophen 10-325 mg Tablet 1 tab PO BID PRN (Reason: Pain) aspirin 81 mg Tablet,Chewable 81 mg PO DAILY tamsulosin [Flomax] 0.4 mg Capsule 0.4 mg PO DAILY fluoxetine 10 mg Tablet 30 mg PO QAM amlodipine 5 mg Tablet 5 mg PO DAILY sildenafil 100 mg Tablet See Rx Instructions .ROUTE .COMPLEX Rx Instructions: 100 mg orally one hour prior to sexual activity as needed (limit 6 doses per 30 days) omeprazole 20 mg Capsule,Delayed Release(Dr/Ec) 20 mg PO QAM fluticasone propion-salmeterol 100-50 mcg/dose Blister With Device 1 inh INHALATION BID loratadine [Claritin] 10 mg Tablet 10 mg PO DAILY tizanidine 4 mg Tablet 2 mg PO TID PRN (Reason: Muscle Spasticity) Referrals: Courtney Duran MD [Primary Care Provider] - Coding Level of Care Code 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
[2024-03-26 13:55] LABS: Basophils % 0.6 %; Eosinophils % 0.5 %; Hematocrit 41.3 % (37-53); Lymphocytes # 1.6 10^3/uL (0.8-4.8); Lymphocytes % 24.8 %; Mean Corpuscular HGB Conc 33.9 g/dL (30-55); Mean Corpuscular Volume 94.3 fl (82-101); Mean Platelet Volume 11.2 fL (7.4-10.4); Monocytes # 1.1 10^3/uL (0.2-0.9); Monocytes % 16.7 %; Neutrophils # 3.78 10^3/uL (1.8-7.7); Neutrophils % 57.2 %; Nucleated Red Blood Cells % 0 %; Platelet Count 147 10^3/cmm (157-399); Red Blood Count 4.38 10^6/uL (3.85-5.65); Red Cell Distribution Width 12.9 % (12.1-15.1)
[2024-03-26 14:11] LABS: Alanine Aminotransferase 17 U/L (0-41); Albumin Level 3.4 g/dL (3.5-5.2); Alkaline Phosphatase 140 U/L (40-130); Anion Gap 13.3 (5-19); Aspartate Amino Transferase 25 U/L (0-40); Blood Urea Nitrogen 8 mg/dL (8-23); Calcium 8.9 mg/dL (8.5-10.5); Carbon Dioxide 24 mmol/L (22-29); Chloride 101 mmol/L (98-107); Creatinine Clr Calc Pharmacy 98.4778; Globulin 3.6 g/dL (1.3-4.6); Glomerular Filtration Rate 133.2 mL/min (90-130); Glucose 101 mg/dL (65-115); Osmolality Calculated 278 mOsm/kg (285-295); Potassium 3.3 mmol/L (3.5-5.1); Sodium 135 mmol/L (136-145); Total Bilirubin 1.4 mg/dL (0.15-1.2)
[2024-03-26 14:23] LABS: Add Urine Microscopic? NO; Charge for UA Resulting for Rev
[2024-03-26 14:31] LABS: Blood Urine Neg (Negative); Glucose Urine UA Norm (Normal); Ketones Urine Negative (Negative); Nitrate Urine Negative (Negative); Protein Urine Neg (Negative); Urine Appearance Clear (CLEAR); Urine Color Yellow (Yellow); pH Urine 6.5 (5-7)
[2024-03-26 14:32] LABS: Bilirubin Urine Neg (Negative); Leukocyte Esterase Urine Negative (Negative); Urobilinogen Urine 4+ mg/dL (Negative)
[2024-03-26 15:06] VITALS: PULSE 87; O2SAT 95
--- NOTE | 2024-03-26 15:16 | PC.NURSE ---
Blood Pressure re-check 156/106; Dr. Saul notified.
[2024-03-26 15:17] VITALS: BP 156/106
--- NOTE | 2024-03-26 15:20 | PC.NURSE ---
@0284: Report called to Alix Duque at [facility]. No further questions verbalized.
[2024-03-26 16:04] VITALS: BP 156/106; O2SAT 93
[2024-03-26 16:05] VITALS: RESP 18; O2SAT 93
[2024-03-26] MEDS: HYDROmorphone 1 mg/mL INJ 1 mL 0.5 MG IVP (16:05)
== END 2024-03-26 16:08 ==
PROVIDERS: Emergency Provider Family Medicine; PCP Family Medicine
DX: S12.000A Unspecified displaced fracture of first cervical vertebra, initial encounter for closed fracture (principal); I60.9 Nontraumatic subarachnoid hemorrhage, unspecified; W19.XXXA Unspecified fall, initial encounter; Z91.81 History of falling
CPT/HCPCS: 36415; 70450; 72125; 80053; 81003; 85025; 96374; 99285; J1170

== ENCOUNTER → 2024-06-30 13:26 | Outpatient (BNVA) | payer OTHER, SELFPAY | PROVIDERS: PCP Family Medicine; Visit Provider Physician Assistant | DX: Z96.651 Presence of right artificial knee joint (principal) | CPT/HCPCS: 73560; 73565; 99024 ==

== ENCOUNTER → 2024-10-01 13:55 | Outpatient (BNVA) | payer OTHER, SELFPAY | PROVIDERS: PCP Family Medicine; Visit Provider Physician Assistant | DX: Z96.651 Presence of right artificial knee joint (principal) | CPT/HCPCS: 73560; 73565; 99213 ==

== ENCOUNTER 2024-10-27 06:00 | Outpatient (RCR) | payer OTHER, SELFPAY | END 2024-11-10 23:59 | disposition home or self-care (01) | LOC: WPT 06:00 | PROVIDERS: Visit Provider Physician Assistant | DX: R53.1 Weakness (principal) | CPT/HCPCS: 97110; 97112; 97140; 97161; 97530 ==

== ENCOUNTER 2024-11-11 06:00 | Outpatient (RCR) | payer OTHER, SELFPAY | END 2024-12-11 23:59 | disposition home or self-care (01) | LOC: WPT 06:00 | PROVIDERS: Visit Provider Physician Assistant | DX: R53.1 Weakness (principal) | CPT/HCPCS: 97110; 97112; 97116; 97530 ==

== ENCOUNTER 2024-12-12 06:00 | Outpatient (RCR) | payer OTHER, SELFPAY | END 2025-01-08 23:59 | disposition home or self-care (01) | LOC: WPT 06:00 | PROVIDERS: Visit Provider Physician Assistant | DX: R53.1 Weakness (principal) | CPT/HCPCS: 97110; 97112; 97530 ==

== ENCOUNTER → 2025-04-28 09:55 | Outpatient (BNVA) | payer OTHER, SELFPAY | PROVIDERS: PCP Family Medicine; Visit Provider Physician Assistant | DX: Z96.651 Presence of right artificial knee joint (principal); Z01.89 Encounter for other specified special examinations | CPT/HCPCS: 73560; 73565; 99213 ==